=== PATIENT | male | born 1950 | race Caucasian/White ===

== ENCOUNTER 2017-04-11 06:01 | Day surgery (SDC) | payer MEDICARE ==
[2017-04-11] MEDS ORDERED: LACTATED RINGERS 1,000 ML IV ONE (06:32)
[2017-04-11] MEDS ORDERED: fentaNYL 100 MCG/2 ML VIAL IVP ONE (07:30)
[2017-04-11] MEDS ORDERED: MIDAZOLAM 2 MG/2 ML VIAL IVP ONE (07:30)
[2017-04-11] MEDS ORDERED: BENZOCAINE/TETRACAINE/BUTAMBEN SPRAY 56 GM TOP ONE (07:41)
== END 2017-04-11 06:02 | disposition home or self-care (01) ==
PROC: 0DB68ZX Excision of Stomach, Via Natural or Artificial Opening Endoscopic, Diagnostic (ICD-10-PCS; principal; 2017-04-11 07:30)
DX: R49.0 Dysphonia (principal); K21.9 Gastro-esophageal reflux disease without esophagitis; K29.70 Gastritis, unspecified, without bleeding; G20 Parkinson's disease; Z87.891 Personal history of nicotine dependence; Z79.82 Long term (current) use of aspirin; I10 Essential (primary) hypertension; Z95.810 Presence of automatic (implantable) cardiac defibrillator; Z90.49 Acquired absence of other specified parts of digestive tract
CPT/HCPCS: 43239; A9270; J7120

== ENCOUNTER 2018-05-11 14:27 | Outpatient (CLI) | payer MEDICARE ==
[2018-05-11 18:48] LABS: BASOPHILS # (AUTO) 0.1 10^3/uL (0.0-0.1); BASOPHILS % (AUTO) 1.1 %; EOSINOPHILS # (AUTO) 0.3 10^3/uL (0.0-0.7); EOSINOPHILS % (AUTO) 5.6 %; HGB - HEMOGLOBIN 13.3 g/dL (14.0-18.0); LYMPHOCYTES # (AUTO) 1.2 10^3/uL (1.5-3.5); LYMPHOCYTES % (AUTO) 24.1 %; MEAN CORPUSCULAR HEMOGLOBIN 30.3 pg (27.0-31.0); MEAN CORPUSCULAR VOLUME 91.8 fL (80.0-94.0); MEAN PLATELET VOLUME 10.1 fL (7.4-11.4); MONOCYTES # (AUTO) 0.3 10^3/uL (0.0-1.0); MONOCYTES % (AUTO) 6.5 %; NEUTROPHILS # (AUTO) 3.1 10^3/uL (1.5-6.6); NEUTROPHILS % (AUTO) 62.7 %; PLT - PLATELET COUNT 145 10^3/uL (130-450); RED BLOOD COUNT 4.38 10^6/uL (4.70-6.10); RED CELL DISTRIBUTION WIDTH 13.2 % (12.0-15.0); WHITE BLOOD COUNT 4.9 x10^3/uL (4.8-10.8)
[2018-05-11 19:04] LABS: ALBUMIN 4.1 g/dL (3.2-5.5); ALBUMIN/GLOBULIN RATIO 1.2 (1.0-2.2); ALKALINE PHOSPHATASE 33 IU/L (42-121); ALT ALANINE AMINOTRANSFERASE 57 IU/L (10-60); AST ASPARTATE AMINOTRANSFERASE 46 IU/L (10-42); BILIRUBIN,TOTAL 0.6 mg/dL (0.2-1.0); BUN - BLOOD UREA NITROGEN 18 mg/dL (6-20); CALCIUM 9.2 mg/dL (8.5-10.3); CARBON DIOXIDE - CO2 27 mmol/L (21-32); CHLORIDE 105 mmol/L (101-111); CHOL/HDL RATIO 3.7 (<5.0); CHOLESTEROL 146 mg/dL; CREATININE 1.1 mg/dL (0.6-1.2); GFR - MDRD 67 (>89); GLUCOSE 121 mg/dL (70-100); HDL CHOLESTEROL 40 mg/dL; LDL CHOLESTEROL,CALCULATED 92 mg/dL; LDL/HDL RATIO 2.3 (<3.6); SODIUM 137 mmol/L (135-145); TOTAL PROTEIN 7.5 g/dL (6.7-8.2); VLDL CHOLESTEROL 14 mg/dL
[2018-05-11 19:06] LABS: HB2 TOTAL 14.3 g/dL; HEMOGLOBIN A1C 0.81 g/dL; HEMOGLOBIN A1C % 7.3 % (4.6-6.2)
== END 2018-05-11 14:28 | disposition home or self-care (01) ==
LOC: LAB.WCP 14:27
PROVIDERS: ATTEND Family Medicine
DX: I10 Essential (primary) hypertension (principal); R74.8 Abnormal levels of other serum enzymes; Z13.220 Encounter for screening for lipoid disorders; R73.01 Impaired fasting glucose; Z12.5 Encounter for screening for malignant neoplasm of prostate; F41.9 Anxiety disorder, unspecified; R27.9 Unspecified lack of coordination; R00.2 Palpitations
CPT/HCPCS: 36415; 80053; 80061; 83036; 84443; 85025; G0103; 83721; 84153

== ENCOUNTER 2018-11-15 08:00 | Outpatient (CLI) | payer MEDICARE ==
[2018-11-15 13:55] LABS: ALBUMIN 4.1 g/dL (3.2-5.5); ALBUMIN/GLOBULIN RATIO 1.2 (1.0-2.2); BILIRUBIN,TOTAL 0.7 mg/dL (0.2-1.0); CREATININE 1.1 mg/dL (0.6-1.2); TOTAL PROTEIN 7.4 g/dL (6.7-8.2)
[2018-11-15 16:44] LABS: HB2 TOTAL 14.2 g/dL; HEMOGLOBIN A1C 0.82 g/dL; HEMOGLOBIN A1C % 7.4 % (4.6-6.2)
== END 2018-11-15 23:59 | disposition home or self-care (01) ==
LOC: LAB.WCP 08:00
PROVIDERS: ATTEND Family Medicine
DX: E11.9 Type 2 diabetes mellitus without complications (principal)
CPT/HCPCS: 36415; 80053; 83036

== ENCOUNTER 2018-12-08 14:05 | Outpatient (CLI) | payer MEDICARE ==
--- NOTE | 2018-12-10 16:05 | Ultrasound Report ---
Reason: ELEVATED LIVER ENZYMES,FATTY LIVER DISEASE,HEPATIC Procedure Date: 12/08/2018 Accession Number: [id number] / [id number] Procedure: US - Abdomen Limited CPT Code: FULL RESULT: EXAM: ABDOMEN ULTRASOUND LIMITED, RUQ EXAM DATE: 12/08/2018 03:18 PM. CLINICAL HISTORY: ELEVATED LIVER ENZYMES,FATTY LIVER Disease, hepatic. COMPARISON: 04/03/2014 ultrasound and 01/16/2015 CT. TECHNIQUE: Real-time scanning was performed with static images obtained. FINDINGS: Limited due to patient's body habitus and inability to hold his breath. Liver: Normal in size and increased in echotexture. 15.4 cm. Innumerable simple cysts are present the largest in the left lobe approximately 4 cm and the largest in the right lobe approximately 3.6 cm. Main portal vein flow: Hepatopetal. Gallbladder: Surgically absent Biliary System: CBD measures 3.5 mm. No intrahepatic or extrahepatic ductal dilatation. Free fluid: None. Right kidney: 10.2 cm in length. No hydronephrosis. IMPRESSION: 1. Multiple hepatic simple cysts. 2. Status post cholecystectomy. 3. Increased hepatic echogenicity consistent with fatty infiltration. RADIA
== END 2018-12-08 14:06 | disposition home or self-care (01) ==
LOC: DI 14:05
PROVIDERS: ATTEND Family Medicine
DX: K76.89 Other specified diseases of liver (principal); R74.8 Abnormal levels of other serum enzymes; K76.0 Fatty (change of) liver, not elsewhere classified
CPT/HCPCS: 76705

== ENCOUNTER 2019-02-18 08:00 | Outpatient (CLI) | payer MEDICARE ==
[2019-02-18 12:55] LABS: ALBUMIN 4.4 g/dL (3.2-5.5); ALBUMIN/GLOBULIN RATIO 1.5 (1.0-2.2); BILIRUBIN,TOTAL 0.4 mg/dL (0.2-1.0); CALCIUM 9.5 mg/dL (8.5-10.3); CREATININE 1.1 mg/dL (0.6-1.2); TOTAL PROTEIN 7.4 g/dL (6.7-8.2)
[2019-02-18 13:56] LABS: HB2 TOTAL 13.9 g/dL; HEMOGLOBIN A1C 0.79 g/dL; HEMOGLOBIN A1C % 7.4 % (4.6-6.2)
== END 2019-02-18 23:59 | disposition home or self-care (01) ==
LOC: LAB.WCP 08:00
PROVIDERS: ATTEND Family Medicine
DX: M21.6X9 Other acquired deformities of unspecified foot (principal); E11.9 Type 2 diabetes mellitus without complications; K76.0 Fatty (change of) liver, not elsewhere classified; K76.89 Other specified diseases of liver; G20 Parkinson's disease
CPT/HCPCS: 36415; 80053; 83036

== ENCOUNTER 2019-06-06 08:00 | Outpatient (CLI) | payer MEDICARE ==
[2019-06-07 15:18] LABS: HEPATITIS A IGM NON-REACTIVE (NON-REACTIVE); HEPATITIS B CORE ANTIBODY IGM NON-REACTIVE (NON-REACTIVE); HEPATITIS B SURFACE ANTIGEN NON-REACTIVE (NON-REACTIVE); HEPATITIS C ANTIBODY NON-REACTIVE (NON-REACTIVE)
== END 2019-06-06 23:59 | disposition home or self-care (01) ==
LOC: LAB.WCP 08:00
PROVIDERS: ATTEND Family Medicine
DX: K76.0 Fatty (change of) liver, not elsewhere classified (principal)
CPT/HCPCS: 36415; 80074

== ENCOUNTER 2019-07-16 09:46 | Outpatient (CLI) | payer MEDICARE | END 2019-07-16 09:47 | disposition home or self-care (01) | LOC: RT 09:46 | PROVIDERS: ATTEND Psychiatry & Neurology Neurology | DX: G20 Parkinson's disease (principal) | CPT/HCPCS: 93005 ==

== ENCOUNTER → 2019-09-03 | Outpatient (CLI) | payer MEDICARE ==
--- NOTE | 2019-09-04 04:30 | XRAY Report ---
Reason: RIGHT ANKLE PAIN Procedure Date: 09/03/2019 Accession Number: [id number] / [id number] Procedure: WCP - Ankle 3 View RT CPT Code: FULL RESULT: EXAM: RIGHT ANKLE RADIOGRAPHY EXAM DATE: 09/03/2019 09:10 AM. CLINICAL HISTORY: RIGHT ANKLE PAIN. COMPARISON: None. TECHNIQUE: 3 views. FINDINGS: Bones: Small fracture fragment of uncertain age suspected at the tip of the lateral malleolus. Joints: No dislocation seen. Ankle mortise appears intact. No joint effusion seen. Soft Tissues: Soft tissue swelling. IMPRESSION: 1. Suspect small fracture fragment at the tip of the lateral malleolus. RADIA
== END ==
LOC: DI.WCP 08:00 → EDSTATUS 12:30
PROVIDERS: ATTEND Nurse Practitioner Family
DX: M25.571 Pain in right ankle and joints of right foot (principal)

== ENCOUNTER 2019-09-26 07:10 | Outpatient (CLI) | payer MEDICARE ==
[2019-09-26 12:27] LABS: BASOPHILS % (AUTO) 0.7 %; EOSINOPHILS # (AUTO) 0.2 10^3/uL (0.0-0.7); HGB - HEMOGLOBIN 12.7 g/dL (14.0-18.0); LYMPHOCYTES # (AUTO) 1.3 10^3/uL (1.5-3.5); LYMPHOCYTES % (AUTO) 23.3 %; MEAN CORPUSCULAR HEMOGLOBIN 29.3 pg (27.0-31.0); MEAN CORPUSCULAR HGB CONC 32.2 g/dL (32.0-36.0); MONOCYTES # (AUTO) 0.5 10^3/uL (0.0-1.0); MONOCYTES % (AUTO) 8.4 %; NEUTROPHILS # (AUTO) 3.5 10^3/uL (1.5-6.6); NEUTROPHILS % (AUTO) 63.4 %; PLT - PLATELET COUNT 185 10^3/uL (130-450); RED BLOOD COUNT 4.34 10^6/uL (4.70-6.10); RED CELL DISTRIBUTION WIDTH 12.5 % (12.0-15.0); WHITE BLOOD COUNT 5.5 x10^3/uL (4.8-10.8)
[2019-09-26 12:47] LABS: ALBUMIN 4.5 g/dL (3.2-5.5); ALBUMIN/GLOBULIN RATIO 1.5 (1.0-2.2); ALKALINE PHOSPHATASE 29 IU/L (42-121); ALT ALANINE AMINOTRANSFERASE 29 IU/L (10-60); AST ASPARTATE AMINOTRANSFERASE 26 IU/L (10-42); BILIRUBIN,TOTAL 0.9 mg/dL (0.2-1.0); BUN - BLOOD UREA NITROGEN 20 mg/dL (6-20); CALCIUM 9.3 mg/dL (8.5-10.3); CARBON DIOXIDE - CO2 28 mmol/L (21-32); CHLORIDE 107 mmol/L (101-111); CHOL/HDL RATIO 3.8 (<5.0); CHOLESTEROL 149 mg/dL; CREATININE 1.1 mg/dL (0.6-1.2); GFR - MDRD 66 (>89); GLUCOSE 113 mg/dL (70-100); HDL CHOLESTEROL 39 mg/dL; LDL CHOLESTEROL,CALCULATED 97 mg/dL; LDL/HDL RATIO 2.5 (<3.6); SODIUM 141 mmol/L (135-145); TOTAL PROTEIN 7.5 g/dL (6.7-8.2); VLDL CHOLESTEROL 13 mg/dL
[2019-09-26 12:56] LABS: HB2 TOTAL 13.8 g/dL; HEMOGLOBIN A1C 0.65 g/dL; HEMOGLOBIN A1C % 6.5 % (4.6-6.2)
== END 2019-09-26 23:59 | disposition home or self-care (01) ==
LOC: LAB.WCP 07:10
PROVIDERS: ATTEND Family Medicine
DX: G20 Parkinson's disease (principal); E11.9 Type 2 diabetes mellitus without complications; I10 Essential (primary) hypertension
CPT/HCPCS: 36415; 80053; 80061; 83036; 83721; 84443; 85025

== ENCOUNTER 2020-08-04 15:12 | Emergency (ER) | payer MEDICARE, OTHER ==
[2020-08-04 16:10] LABS: BASOPHILS # (AUTO) 0.1 10^3/uL (0.0-0.1); BASOPHILS % (AUTO) 1.3 %; EOSINOPHILS # (AUTO) 0.3 10^3/uL (0.0-0.7); EOSINOPHILS % (AUTO) 4.8 %; HGB - HEMOGLOBIN 13.7 g/dL (14.0-18.0); LYMPHOCYTES # (AUTO) 1.2 10^3/uL (1.5-3.5); LYMPHOCYTES % (AUTO) 18.6 %; MEAN CORPUSCULAR HEMOGLOBIN 30.2 pg (27.0-31.0); MEAN CORPUSCULAR HGB CONC 32.7 g/dL (32.0-36.0); MEAN CORPUSCULAR VOLUME 92.5 fL (80.0-94.0); MEAN PLATELET VOLUME 11.7 fL (7.4-11.4); MONOCYTES # (AUTO) 0.5 10^3/uL (0.0-1.0); MONOCYTES % (AUTO) 7.7 %; NEUTROPHILS # (AUTO) 4.3 10^3/uL (1.5-6.6); NEUTROPHILS % (AUTO) 67.3 %; PLT - PLATELET COUNT 187 10^3/uL (130-450); RED BLOOD COUNT 4.53 10^6/uL (4.70-6.10); RED CELL DISTRIBUTION WIDTH 12.7 % (12.0-15.0); WHITE BLOOD COUNT 6.4 x10^3/uL (4.8-10.8)
[2020-08-04 16:26] LABS: ALBUMIN 4.4 g/dL (3.2-5.5); ALBUMIN/GLOBULIN RATIO 1.3 (1.0-2.2); BILIRUBIN,TOTAL 0.6 mg/dL (0.2-1.0); CALCIUM 9.7 mg/dL (8.5-10.3); CREATININE 1.3 mg/dL (0.6-1.2); MAGNESIUM 1.7 mg/dL (1.7-2.8); TOTAL PROTEIN 7.7 g/dL (6.7-8.2)
--- NOTE | 2020-08-04 16:35 | CT Report ---
PROCEDURE: HEAD WO INDICATIONS: fall and struck head; weakness TECHNIQUE: Noncontrast 4.5 mm thick angled axial sections acquired from the foramen magnum to the vertex. For r adiation dose reduction, the following was used: automated exposure control, adjustment of mA and/or kV according to patient size. COMPARISON: None. FINDINGS: Image quality: Study degraded by streak artifact from bilateral neurostimulator device electrodes. Th ere is also mild motion artifact. CSF spaces: Basal cisterns are patent. No extra-axial fluid collections. Ventricles are symmetric in size and shape. Brain: Bilateral stimulator device electrodes are noted extending into the region of the lalita bilate rally. The electrodes causes moderate beam hardening and streak artifact. No midline shift. No intra cranial masses or acute hemorrhage. Patel-white matter interface is normal. Mild diffuse cortical vo lume loss with associated prominence of the ventricles and sulci. Mild periventricular white matter c hanges from sequela of chronic small vessel ischemic disease. Minimal atherosclerotic calcifications of the intracranial internal carotid arteries. Skull and face: Calvarium and visualized facial bones are intact, without suspicious lesions. Sinuses: Visualized sinuses and mastoids are clear. IMPRESSION: Limited evaluation of the head secondary to beam hardening/artifact from neurostimulator electrodes a nd motion artifact. Within the limitations of this study, no acute intracranial abnormalities identif ied. Reviewed by: Dat Scott MD on 08/04/2020 4:34 PM PDT Approved by: Dat Scott MD on 08/04/2020 4:34 PM PDT Station ID: [id number]
--- NOTE | 2020-08-04 17:45 | ED Physician Documentation ---
PD HPI ALTERED MENTAL STATUS - Stated complaint Stated Complaint: GLF/CONFUSION - Chief complaint Chief Complaint: Neuro - History obtained from History obtained from: Patient, Family () - History of Present Illness Timing - onset: How many days ago (has had increased balance problems over last several days with falling and did hit head few times. No fevers. Has appt with PMD in 2 days and Neurologist next week. Neurology office called him back and directed him to ER to ensure no other cofactors such as infection, ICH, electrolyte problems, etc.) Timing - duration: Days (history of balance problems with Parkinsons but has been notably worse the past several days, with falls.) Timing - details: Gradual onset, Still present Quality / character: No: Confused, Disoriented Associated symptoms: No: Fever, Headache, Dyspnea, Cough, NVD, Syncope Contributing factors: No: Anticoagulated, Diabetic, Recent med change, Intoxicated Basline status: Alert and oriented X 3, Ambulatory, Walker Recently seen: Not recently seen Review of Systems Constitutional: denies: Fever, Chills Nose: denies: Rhinorrhea / runny nose, Congestion Throat: denies: Sore throat Respiratory: denies: Cough GI: denies: Abdominal Pain, Nausea, Vomiting, Diarrhea : denies: Dysuria Skin: denies: Abrasion (s), Laceration (s) Neurologic: reports: Generalized weakness, Head injury. denies: Focal weakness, Numbness, Difficulty speaking, Altered mental status, Headache PD PAST MEDICAL HISTORY - Past Medical History Cardiovascular: Other Respiratory: Sleep apnea, CPAP use Endocrine/Autoimmune: None GI: GERD : Benign prostate hypertrophy HEENT: Other Psych: None Musculoskeletal: None Derm: None - Past Surgical History Past Surgical History: Yes General: Cholecystectomy Derm: Other - Present Medications Home Medications: Ambulatory Orders Medication Instructions Recorded Confirmed Docosahexaenoic Acid [Dha] 450 mg PO BID 09/05/13 04/11/17 Multivit-Min/Iron Fum/Folic AC 1 each PO DAILY 09/05/13 04/11/17 [Freedavite Tablet] Rasagiline [Azilect] 1 mg PO DAILY 09/05/13 04/11/17 Ropinirole HCl [Requip Xl] 4 mg PO BID 09/05/13 04/11/17 Saw [place] 80 mg PO DAILY 09/05/13 04/11/17 Aspirin 81 mg PO DAILY 04/11/17 04/11/17 Esomeprazole Magnesium [Nexium] 20 mg PO DAILY 04/11/17 04/11/17 Naltrexone HCl 5 mg PO DAILY 04/11/17 04/11/17 Losartan Potassium 25 mg PO DAILY #20 tablet 08/04/20 - Allergies Allergies/Adverse Reactions: Allergies Allergy/AdvReac Type Severity Reaction Status Date / Time No Known Drug Allergies Allergy Verified 09/05/13 14:23 - Social History Does the pt smoke?: No Smoking Status: Never smoker - Immunizations Immunizations are current?: Yes PD ED PE NORMAL - Vitals Vital signs reviewed: Yes - General General: Alert and oriented X 3, No acute distress, Well developed/nourished - HEENT HEENT: Moist mucous membranes, Pharynx benign, Other (stimulator wires noted to back of neck down to stimulator generator. ) - Neck Neck: Supple, no meningeal sign, No adenopathy - Cardiac Cardiac: RRR, No murmur - Respiratory Respiratory: Clear bilaterally - Abdomen Abdomen: Soft, Non tender - Derm Derm: Normal color, Warm and dry - Extremities Extremities: Normal ROM s pain, No edema, No calf tenderness / cord - Neuro Neuro: Alert and oriented X 3, No motor deficit, No sensory deficit, Normal speech Results - Vitals Vitals: Vital Signs - 24 hr 08/04/20 08/04/20 08/04/20 15:16 17:52 18:48 Temperature 36.7 C 36.8 C Heart Rate 66 57 L 54 L Respiratory 16 24 18 Rate Blood Pressure 150/76 H 224/95 H 217/92 H O2 Saturation 99 100 98 08/04/20 08/04/20 19:00 19:50 Temperature 36.6 C Heart Rate 48 L 67 Respiratory 18 18 Rate Blood Pressure 201/82 H 198/84 H O2 Saturation 97 99 Oxygen O2 Source Room air - Labs Labs: Laboratory Tests 08/04/20 08/04/20 08/04/20 16:00 16:00 16:00 WBC 6.4 RBC 4.53 L Hgb 13.7 L Hct 41.9 L MCV 92.5 MCH 30.2 MCHC 32.7 RDW 12.7 Plt Count 187 MPV 11.7 H Neut # (Auto) 4.3 Lymph # (Auto) 1.2 L [place] # (Auto) 0.5 Eos # (Auto) 0.3 Baso # (Auto) 0.1 Absolute Nucleated RBC 0.00 Nucleated RBC % 0.0 Sodium 139 Potassium 4.6 Chloride 105 Carbon Dioxide 23 Anion Gap 11.0 BUN 17 Creatinine 1.3 H Estimated GFR (MDRD) 55 L Glucose 135 H Lactic Acid 1.4 Calcium 9.7 Magnesium 1.7 Total Bilirubin 0.6 AST 19 ALT 21 Alkaline Phosphatase 31 L Total Protein 7.7 Albumin 4.4 Globulin 3.3 Albumin/Globulin Ratio 1.3 Lipase 30 Urine Color Urine Clarity Urine pH Ur Specific [place] Urine Protein Urine Glucose (UA) Urine Ketones Urine Occult Blood Urine Nitrite Urine Bilirubin Urine Urobilinogen Ur Leukocyte Esterase Ur Microscopic Review Urine Culture Comments 08/04/20 18:02 WBC RBC Hgb Hct MCV MCH MCHC RDW Plt Count MPV Neut # (Auto) Lymph # (Auto) [place] # (Auto) Eos # (Auto) Baso # (Auto) Absolute Nucleated RBC Nucleated RBC % Sodium Potassium Chloride Carbon Dioxide Anion Gap BUN Creatinine Estimated GFR (MDRD) Glucose Lactic Acid Calcium Magnesium Total Bilirubin AST ALT Alkaline Phosphatase Total Protein Albumin Globulin Albumin/Globulin Ratio Lipase Urine Color YELLOW Urine Clarity CLEAR Urine pH 5.5 Ur Specific [place] 1.025 Urine Protein NEGATIVE Urine Glucose (UA) NEGATIVE Urine Ketones NEGATIVE Urine Occult Blood NEGATIVE Urine Nitrite NEGATIVE Urine Bilirubin NEGATIVE Urine Urobilinogen 0.2 (NORMAL) Ur Leukocyte Esterase NEGATIVE Ur Microscopic Review NOT INDICATED Urine Culture Comments NOT INDICATED - Rads (name of study) head CT Radiology: Prelim report reviewed (artifact due to stimulator wires. No noted ICH nor other acute process. ), See rad report PD MEDICAL DECISION MAKING - ED course Complexity details: considered differential (has some high blood pressure here but symptoms do not sound like HTN urgency. Otherwise no signs of infections, electrolyte disorder, Acute ICH nor swelling, etc. Presume issues with Parkinsons and meds/stim. He has appt with PMD in couple days and then Neurology re: meds to help with Parkinsons. ), d/w patient, d/w family () Departure - Departure Disposition: 01 Home, Self Care Clinical Impression: Frequent falls, Parkinsons disease High blood pressure Qualifiers: Hypertension type: unspecified Qualified Code(s): I10 - Essential (primary) hypertension Condition: Stable Record reviewed to determine appropriate education?: Yes Instructions: ED Hypertension Poss Follow-Up: Samir Mcdaniel MD [Primary Care Provider] - Prescriptions: Losartan Potassium 25 mg PO DAILY #20 tablet Comments: Your blood pressure was high here today but unclear whether that was contrib uting to your symptoms. I would think less likely. However you should check your blood pressure once or twice daily over the next several days to week to see if it remains consistently high. If so you may need to be on a blood pressure medicine. It is possible it might be just elevated because of symptoms recently and might return to normal on its own. Continue your usual medications. Follow-up with your primary care and neurologist over the next few days. No signs of other infection or electrolyte problems or such on test today. If your BP is still very elevated tomorrow, you could start a mild BP med ahead of seeing your primary care. If you elect to do that, then start Losartan 25 mg PO daily. Discharge Date/Time: 08/04/20 19:50
[2020-08-04 18:20] LABS: BILIRUBIN,URINE NEGATIVE (NEGATIVE); CLARITY,URINE CLEAR (CLEAR); GLUCOSE, URINE (UA) NEGATIVE (NEGATIVE); KETONES,URINE (UA) NEGATIVE (NEGATIVE); LEUKOCYTE ESTERASE, URINE NEGATIVE (NEGATIVE); NITRITE,URINE NEGATIVE (NEGATIVE); OCCULT BLOOD,URINE NEGATIVE (NEGATIVE); PH,URINE 5.5 PH (5.0-7.5); PROTEIN,URINE NEGATIVE (NEGATIVE); UROBILINOGEN,URINE 0.2 (NORMAL) E.U./dL (NORMAL)
[2020-08-04] MEDS ORDERED: cloNIDine 0.1 MG TABLET PO STA (18:23)
[2020-08-04 20:00] VITALS: BP 198/84
== END 2020-08-04 19:50 | disposition home or self-care (01) ==
LOC: ED 15:12
DX: G20 Parkinson's disease (principal); I10 Essential (primary) hypertension; Z79.82 Long term (current) use of aspirin; Z91.81 History of falling
CPT/HCPCS: 36415; 70450; 80053; 81003; 83605; 83690; 83735; 85025; 99284; A9270; 81001; 87086

== ENCOUNTER 2020-08-14 10:51 | Outpatient (CLI) | payer MEDICARE, OTHER ==
--- NOTE | 2020-08-14 12:20 | XRAY Report ---
PROCEDURE: Chest 2 View X-Ray INDICATIONS: PARKINSON'S DISEASE TECHNIQUE: 2 view(s) of the chest. COMPARISON: None. FINDINGS: Surgical changes and devices: Neural stimulator control device is present over the lateral aspect of each chest with leads extending cephalad above the imaging margin. Lungs and pleura: No pleural effusions or pneumothorax. Lungs are clear. Mediastinum: Mediastinal contours are normal. Heart size is normal. Bones and chest wall: No suspicious bony abnormalities. Soft tissues appear unremarkable. IMPRESSION: Bilateral neural stimulators and leads, normal chest otherwise. Reviewed by: Julien Barber MD on 08/14/2020 12:18 PM PDT Approved by: Julien Barber MD on 08/14/2020 12:18 PM PDT Station ID: [id number]
== END 2020-08-14 10:52 | disposition home or self-care (01) ==
LOC: DI 10:51
PROVIDERS: ATTEND Psychiatry & Neurology Neurology
DX: G20 Parkinson's disease (principal)
CPT/HCPCS: 71046

== ENCOUNTER 2020-08-17 17:46 | Emergency (ER) | payer MEDICARE, OTHER ==
--- NOTE | 2020-08-17 18:02 | ED Physician Documentation ---
PD HPI CHEST PAIN - Stated complaint Stated Complaint: RT SIDE PX - Chief complaint Chief Complaint: Cardiac - History obtained from History obtained from: Patient - History of Present Illness Timing - onset: How many hours ago (1), Today Timing - onset during: Light activity (Onset at rest of right lower chest and right upper abdomen pain associated with dyspnea and some distention of the abdomen. He had fallen lately to that side 2 hours prior but did not have pain at that time.) Timing - duration: Hours (1) Timing - details: Abrupt onset, Still present Quality: Aching, Sharp, Pain Location: Right chest, Other (right upper abd) Improved by: Other (breathing and moving.) Worsened by: Inspiration Associated symptoms: Shortness of air, General Weakness. No: Nausea, Feeling faint / dizzy, Cough Similar symptoms before: Has not had sx before Recently seen: Clinic, Emergency Dept (2 weeks ago for BP elevated. Started on new med recently for that. Also seen Neurologist and Rx Gabapentin couple weeks ago.) Review of Systems Constitutional: denies: Fever Nose: denies: Rhinorrhea / runny nose, Congestion Throat: denies: Sore throat Cardiac: reports: Chest pain / pressure. denies: Palpitations Respiratory: reports: Dyspnea. denies: Cough GI: reports: Abdominal Pain (right upper) Skin: denies: Abrasion (s), Laceration (s) Neurologic: denies: Focal weakness, Numbness, Headache PD PAST MEDICAL HISTORY - Past Medical History Cardiovascular: Hypertension, Other Respiratory: Sleep apnea, CPAP use Neuro: Parkinson's Endocrine/Autoimmune: None GI: GERD : Benign prostate hypertrophy HEENT: Other Psych: None Musculoskeletal: None Derm: None - Past Surgical History Past Surgical History: Yes General: Cholecystectomy Derm: Other - Present Medications Home Medications: Ambulatory Orders Medication Instructions Recorded Confirmed Docosahexaenoic Acid [Dha] 450 mg PO BID 09/05/13 04/11/17 Multivit-Min/Iron Fum/Folic AC 1 each PO DAILY 09/05/13 04/11/17 [Freedavite Tablet] Rasagiline [Azilect] 1 mg PO DAILY 09/05/13 04/11/17 Ropinirole HCl [Requip Xl] 4 mg PO BID 09/05/13 04/11/17 Saw [place] 80 mg PO DAILY 09/05/13 04/11/17 Aspirin 81 mg PO DAILY 04/11/17 04/11/17 Esomeprazole Magnesium [Nexium] 20 mg PO DAILY 04/11/17 04/11/17 Naltrexone HCl 5 mg PO DAILY 04/11/17 04/11/17 Losartan Potassium 25 mg PO DAILY #20 tablet 08/04/20 Oxycodone HCl/Acetaminophen 1 each PO Q6H PRN #12 tablet 08/17/20 [Percocet 5-325 mg Tablet] - Allergies Allergies/Adverse Reactions: Allergies Allergy/AdvReac Type Severity Reaction Status Date / Time No Known Drug Allergies Allergy Verified 08/17/20 17:55 - Social History Does the pt smoke?: No Smoking Status: Never smoker - Immunizations Immunizations are current?: Yes PD ED PE NORMAL - Vitals Vital signs reviewed: Yes - General General: Alert and oriented X 3, Well developed/nourished, Other (appears in considerable pain with some dyspnea/wheezing sounds, but pain is right lower chest/mostly RUQ abd. ) - HEENT HEENT: Pharynx benign - Neck Neck: Supple, no meningeal sign, No adenopathy - Cardiac Cardiac: RRR, No murmur - Respiratory Respiratory: Other (some exp wheezing. No chestwall tenderness. ) - Abdomen Abdomen: Soft, Other (Abdomen feels tight and distended. There is marked tenderness to light touch and percussion in the right upper quadrant. Bowel sounds are diminished. There is no obvious bruising noted. The lower abdomen is nontender.) - Male Male : Deferred - Rectal Rectal: Deferred - Back Back: No CVA TTP - Derm Derm: Normal color, Warm and dry - Extremities Extremities: Normal ROM s pain, No edema, No calf tenderness / cord - Neuro Neuro: Alert and oriented X 3, No motor deficit, Normal speech Eye Opening: Spontaneous Motor: Obeys Commands Verbal: Oriented GCS Score: 15 Results - Vitals Vitals: Vital Signs - 24 hr 08/17/20 08/17/20 08/17/20 17:55 18:40 19:11 Temperature 36.7 C Heart Rate 75 80 74 Respiratory 18 12 12 Rate Blood Pressure 188/102 H 173/76 H 188/96 H O2 Saturation 96 94 96 Oxygen O2 Source Room air - Labs Labs: Laboratory Tests 08/17/20 08/17/20 08/17/20 18:05 18:05 18:05 WBC 8.3 RBC 4.68 L Hgb 14.0 Hct 41.9 L MCV 89.5 MCH 29.9 MCHC 33.4 RDW 12.6 Plt Count 210 MPV 11.5 H Neut # (Auto) 5.7 Lymph # (Auto) 1.5 [place] # (Auto) 0.7 Eos # (Auto) 0.3 Baso # (Auto) 0.1 Absolute Nucleated RBC 0.00 Nucleated RBC % 0.0 Sodium 140 Potassium 3.9 Chloride 104 Carbon Dioxide 27 Anion Gap 9.0 BUN 18 Creatinine 1.2 Estimated GFR (MDRD) 60 L Glucose 124 H Calcium 9.4 Total Bilirubin 0.8 AST 25 ALT 29 Alkaline Phosphatase 34 L Troponin I High Sens 5.8 Total Protein 8.1 Albumin 4.7 Globulin 3.4 Albumin/Globulin Ratio 1.4 Lipase 30 - Rads (name of study) chest xray Radiology: Prelim report reviewed (no acute process, no interval change from prior), See rad report abd/pelvic CT Radiology: Prelim report reviewed, See rad report PD MEDICAL DECISION MAKING - ED course Complexity details: re-evaluated patient (But improved after his some pain medicines with only mild tenderness to palpation now. His CT scan and blood tests are okay without any obvious cause for the pain. My most likely suspicion is 1 of the small cysts of his liver ruptured and had some abrupt pain to it. The major ones look comparable), considered differential (Pain with tenderness significantly in the right upper quadrant abdomen. Does hurt to breathe as well. Consideration for perforated viscus or acute bleeding or bowel obstruction or other significant pathology.), d/w patient Departure - Departure Disposition: 01 Home, Self Care Clinical Impression: Acute abdominal pain in right upper quadrant Condition: Stable Record reviewed to determine appropriate education?: Yes Instructions: ED Abdominal Pain Unkn Cause Follow-Up: Samir Mcdaniel MD [Primary Care Provider] - Prescriptions: Oxycodone HCl/Acetaminophen [Percocet 5-325 mg Tablet] 1 each PO Q6H PRN #12 tablet PRN Reason: pain Comments: Blood test and CT scan do not show any acute obvious cause for the pain. A likely consideration would be a rupture of 1 of the small cysts of the liver. With that I would anticipate the abrupt significant pain you had and then lessened pain perhaps still for another day or 2. Use Tylenol every 4-6 hours or oxycodone if needed for worse pain. Recheck if not improved well over the next day or 2 and return if worsening.
[2020-08-17] MEDS ORDERED: SODIUM CHLORIDE 0.9% 1,000 ML IV STA (18:08)
[2020-08-17] MEDS ORDERED: HYDROmorphone 1 MG/ML CARPUJECT IVP STA (18:08)
[2020-08-17] MEDS ORDERED: ALBUTEROL 1 PUFF INH STA (18:09)
[2020-08-17 18:20] LABS: BASOPHILS # (AUTO) 0.1 10^3/uL (0.0-0.1); EOSINOPHILS # (AUTO) 0.3 10^3/uL (0.0-0.7); LYMPHOCYTES # (AUTO) 1.5 10^3/uL (1.5-3.5); LYMPHOCYTES % (AUTO) 17.8 %; MEAN CORPUSCULAR HEMOGLOBIN 29.9 pg (27.0-31.0); MEAN CORPUSCULAR HGB CONC 33.4 g/dL (32.0-36.0); MEAN CORPUSCULAR VOLUME 89.5 fL (80.0-94.0); MEAN PLATELET VOLUME 11.5 fL (7.4-11.4); MONOCYTES # (AUTO) 0.7 10^3/uL (0.0-1.0); MONOCYTES % (AUTO) 8.9 %; NEUTROPHILS # (AUTO) 5.7 10^3/uL (1.5-6.6); NEUTROPHILS % (AUTO) 68.9 %; PLT - PLATELET COUNT 210 10^3/uL (130-450); RED BLOOD COUNT 4.68 10^6/uL (4.70-6.10); RED CELL DISTRIBUTION WIDTH 12.6 % (12.0-15.0); WHITE BLOOD COUNT 8.3 x10^3/uL (4.8-10.8)
[2020-08-17] MEDS ORDERED: IOVERSOL 320 100 ML VIAL IVP ONE ×2 (18:25→18:48)
--- NOTE | 2020-08-17 18:27 | XRAY Report ---
PROCEDURE: Chest 1 View X-Ray INDICATIONS: Chest pain TECHNIQUE: One view of the chest was acquired. COMPARISON: 08/14/2020 FINDINGS: Surgical changes and devices: Right and left chest wall neurostimulator is are again seen. Lungs and pleura: No pleural effusions or pneumothorax. Lungs are clear. Mediastinum: Mediastinal contours appear normal. Heart size is normal. Bones and chest wall: No suspicious bony lesions. Overlying soft tissues appear unremarkable. IMPRESSION: No acute cardiopulmonary pathology. No significant changes from previous study. Reviewed by: Jt Crespo MD on 08/17/2020 6:25 PM PDT Approved by: Jt Crespo MD on 08/17/2020 6:25 PM PDT Station ID: [id number]
[2020-08-17 18:28] LABS: ALBUMIN 4.7 g/dL (3.2-5.5); ALBUMIN/GLOBULIN RATIO 1.4 (1.0-2.2); BILIRUBIN,TOTAL 0.8 mg/dL (0.2-1.0); CALCIUM 9.4 mg/dL (8.5-10.3); CREATININE 1.2 mg/dL (0.6-1.2); TOTAL PROTEIN 8.1 g/dL (6.7-8.2)
--- NOTE | 2020-08-17 19:06 | CT Report ---
PROCEDURE: Abdomen/Pelvis W INDICATIONS: abrupt RUQ abd/lower chest pain CONTRAST: IV CONTRAST: Optiray 320 ml: 100 PO CONTRAST: *NO PO CONTRAST TECHNIQUE: After the administration of IV contrast, 5 mm thick sections acquired from the diaphragms to the symp hysis. 5 mm thick coronal and sagittal reformats were acquired. For radiation dose reduction, the f ollowing was used: automated exposure control, adjustment of mA and/or kV according to patient size. COMPARISON: Ultrasound of abdomen dated 12/08/2018. FINDINGS: Image quality: Excellent. ABDOMEN: Lung bases: Bibasilar dependent atelectasis are seen. Heart size is normal. Solid organs: Liver liver is normal in size. Numerous well-circumscribed hypodense areas are again s een scattered throughout liver parenchyma and measures up to 12 Hounsfield unit in density likely rep resent hepatic cysts. This was also noted on previous ultrasound study. Largest lesion now measures u p to 3.8 x 3.8 cm in right hepatic dome. Gallbladder is surgically absent. Spleen is normal in size a nd enhancement. Biliary system is non dilated. Pancreas enhances normally. No adrenal nodules. Ki dneys demonstrate normal size and enhancement, without hydronephrosis. Peritoneum and bowel: Bowel loops demonstrate normal wall thickness and caliber. No free fluid or a ir. Mild fecal stasis in the colon is seen. Appendix is visualized and is within normal limits. Nodes and vessels: No retroperitoneal or mesenteric adenopathy by size criteria. Aorta and inferior vena cava are normal in size. Miscellaneous: No ventral hernias. PELVIS: Genitourinary: Bladder wall thickness is normal. Miscellaneous: No inguinal hernias or adenopathy. Bones: No suspicious bony lesions. No vertebral body compression fractures. IMPRESSION: 1. No bowel obstruction. Normal appendix. No abnormal bowel wall thickening. No free fluid of free ai r. 2. Numerous well-circumscribed hypodensities scattered throughout liver parenchyma likely represent h epatic cysts slightly increased in size compared to previous ultrasound dated 12/08/2018. 3. No renal stone or hydronephrosis. 4. Mild bibasilar dependent atelectasis. Reviewed by: Jt Crespo MD on 08/17/2020 7:04 PM PDT Approved by: Jt Crespo MD on 08/17/2020 7:04 PM PDT Station ID: [id number]
[2020-08-17] MEDS ORDERED: KETOROLAC 30 MG/ML VIAL IVP STA (19:17)
[2020-08-17 20:01] VITALS: BP 175/101
== END 2020-08-17 20:13 | disposition home or self-care (01) ==
LOC: ED 17:46
DX: R10.11 Right upper quadrant pain (principal)
CPT/HCPCS: 36415; 71045; 74177; 80053; 83690; 84484; 85025; 93005; 94640; 96374; 96375; 99284; J1170; Q9967

== ENCOUNTER 2020-10-14 08:00 | Outpatient (CLI) | payer MEDICARE, OTHER ==
[2020-10-14 19:22] LABS: CALCIUM 9.5 mg/dL (8.5-10.3); CREATININE 1.1 mg/dL (0.6-1.2)
== END 2020-10-14 23:59 | disposition home or self-care (01) ==
LOC: LAB.WCP 08:00
PROVIDERS: ATTEND Family Medicine
DX: I95.1 Orthostatic hypotension (principal)
CPT/HCPCS: 36415; 80048

== ENCOUNTER 2020-10-23 13:24 | Outpatient (CLI) | payer MEDICARE, OTHER | END 2020-10-23 13:25 | disposition EMS.NT | LOC: EMS 13:24 | PROVIDERS: ATTEND Surgery | DX: Z03.89 Encounter for observation for other suspected diseases and conditions ruled out (principal) ==

== ENCOUNTER 2020-12-08 10:38 | Outpatient (CLI) | payer MEDICARE, OTHER ==
[2020-12-08 19:00] LABS: CALCIUM 9.6 mg/dL (8.5-10.3); CREATININE 1.1 mg/dL (0.6-1.2)
== END 2020-12-08 23:59 | disposition home or self-care (01) ==
LOC: LAB.WCP 10:38
PROVIDERS: ATTEND Family Medicine
DX: I95.1 Orthostatic hypotension (principal)
CPT/HCPCS: 36415; 80048

== ENCOUNTER 2020-12-11 12:25 | Emergency (ER) | payer MEDICARE, OTHER ==
--- NOTE | 2020-12-11 13:07 | ED Physician Documentation ---
PD HPI HEAD INJURY - Stated complaint Stated Complaint: FALL, FACE LAC - Chief complaint Chief Complaint: Trauma Hd/Nk - History obtained from History obtained from: Patient - History of Present Illness Mechanism of head injury: Fell (he fell about 4 feet off retaining wall, landing face forward on ground. Lac to chin and upper lip. No LOC but dazed. No neck pain. Some pain right hip. No chest/abd pain. Main concerns of him/ are the neurostimulators in neck, with wires to batteries on chest, and the lacs of the chin and lip.) Where head injury occurred: Home Timing - onset: Today Location of injury: Front Quality of pain: Pain, Aching Associated symptoms: No: LOC, AMS, Nausea / vomiting Symptoms worsen with: Palpation, Movement (of his jaw) Contributing factors: No: Anticoagulated Review of Systems Constitutional: denies: Fever, Chills Nose: denies: Rhinorrhea / runny nose, Congestion Throat: denies: Sore throat Cardiac: denies: Chest pain / pressure Respiratory: denies: Cough GI: denies: Abdominal Pain Skin: reports: Laceration (s) (chin) Musculoskeletal: denies: Neck pain, Back pain Neurologic: denies: Focal weakness, Headache PD PAST MEDICAL HISTORY - Past Medical History Cardiovascular: Hypertension, Other Respiratory: Sleep apnea Neuro: Parkinson's Endocrine/Autoimmune: None GI: GERD : Benign prostate hypertrophy HEENT: Other Psych: None Musculoskeletal: None Derm: None Other Past Medical History: abdominal cyst - Past Surgical History Past Surgical History: Yes General: Cholecystectomy Derm: Other - Present Medications Home Medications: Ambulatory Orders Medication Instructions Recorded Confirmed Ropinirole HCl [Requip Xl] 4 mg PO TID 09/05/13 12/11/20 Esomeprazole Magnesium [Nexium] 20 mg PO DAILY 04/11/17 12/11/20 Fludrocortisone [Florinef] 0.2 mg PO DAILY 08/17/20 12/11/20 Gabapentin 100 mg PO TID 08/17/20 12/11/20 Carbidopa/Levodopa 25/100 [Sinemet 1 each PO TID 12/11/20 12/11/20 25 mg/100 mg] Cholecalciferol (Vitamin D3) 12/11/20 [Vitamin D3] Oxycodone HCl/Acetaminophen 1 each PO Q6H PRN #20 tablet 12/11/20 [Percocet 5-325 mg Tablet] Turmeric 12/11/20 metFORMIN [Glucophage] 1,000 mg PO DAILY 12/11/20 12/11/20 - Allergies Allergies/Adverse Reactions: Allergies Allergy/AdvReac Type Severity Reaction Status Date / Time No Known Drug Allergies Allergy Verified 12/11/20 12:33 - Social History Does the pt smoke?: No Smoking Status: Never smoker Does the pt drink ETOH?: Yes Does the pt have substance abuse?: No - Immunizations Immunizations are current?: Yes PD ED PE NORMAL - Vitals Vital signs reviewed: Yes - General General: Alert and oriented X 3, No acute distress (Parkinsons with some speech and movement deficits. Baseline function per . ), Well developed/nourished - HEENT HEENT: PERRL, EOMI, Dentition benign, Other (frontal scalp bilaterally with subcut implants. There is some wiring felt linear both sides of neck. chin with 2 lacerations full thickness skin without bleeding nor FB. Left upper lip with partial thickness abrasion of mucosal area. Left left lip with small lac 0.5 cm inside lip. ) - Neck Neck: Supple, no meningeal sign, No bony TTP, Other (some tender soft tissue bilaterally. No bony deformity per se. ) - Cardiac Cardiac: RRR, No murmur - Respiratory Respiratory: Clear bilaterally, Other (bilateral upper chest wall with subcut devices c/w battery packs. No tenderness of these. ) - Abdomen Abdomen: Soft, Non tender - Back Back: No CVA TTP, No spinal TTP - Derm Derm: Normal color, Warm and dry - Extremities Extremities: Other (right anterior hip with some tenderness soft tissue. Passive ROM and impaction of the hip without pain. ) - Neuro Neuro: Alert and oriented X 3, No motor deficit, No sensory deficit Eye Opening: Spontaneous Motor: Obeys Commands Verbal: Oriented GCS Score: 15 Results - Vitals Vitals: Vital Signs - 24 hr 12/11/20 12/11/20 12:30 15:42 Temperature 36.8 C 36.5 C Heart Rate 86 64 Respiratory 17 16 Rate Blood Pressure 113/74 183/97 H O2 Saturation 99 95 Oxygen O2 Source Room air - Rads (name of study) head CT Radiology: Prelim report reviewed (no acute process), See rad report cervical CT Radiology: Prelim report reviewed (some arthritic changes; no acute fractures. ), See rad report right hip Radiology: Prelim report reviewed (no fractures nor dislocations. ), See rad report Procedures - Laceration (location) chin Length in cm: 3 Wound type: Irregular, Into subcut fat, Clean Neurovascular status: Sensory intact, Motor intact, Vascular intact Tendon involvement: Tendon intact Anesthesia: Lidocaine 2% with epi Deep layer closure: Vicryl, size #-0 - enter number (5), # sutures - enter numbe r (3) Skin layer closure: Nylon, Running, Size #-0 - enter number (6) Other: Patient tolerated well, No complications, Neurovascular intact, Dressing applied, Tetanus UTD Complexity: Simple PD MEDICAL DECISION MAKING - ED course Complexity details: reviewed results, considered differential (forward fall with chin lac, lip abrasion, scalp abrasions. Has neurostimulators in brain, so is concerned about the wiring intact. Has some abrasions of hands. NO chest/abd pain. right anterior hip pain. ), d/w patient, d/w family () Departure - Departure Disposition: 01 Home, Self Care Clinical Impression: Accidental fall Qualifiers: Encounter type: initial encounter Qualified Code(s): W19.XXXA - Unspecified fall, initial encounter Chin laceration Qualifiers: Encounter type: initial encounter Qualified Code(s): S01.81XA - Laceration wi thout foreign body of other part of head, initial encounter Lip laceration Qualifiers: Encounter type: initial encounter Qualified Code(s): S01.511A - Laceration without foreign body of lip, initial encounter Contusion, hip Qualifiers: Encounter type: initial encounter Laterality: right Qualified Code(s): S70.01XA - Contusion of right hip, initial encounter Head contusion Qualifiers: Encounter type: initial encounter Contusion of head detail: scalp Qualified Code(s): S00.03XA - Contusion of scalp, initial encounter Condition: Stable Record reviewed to determine appropriate education?: Yes Instructions: ED Laceration Facial Sutr Tape, ED Laceration Mouth Follow-Up: Titi Ocasio MD [Primary Care Provider] - Prescriptions: Oxycodone HCl/Acetaminophen [Percocet 5-325 mg Tablet] 1 each PO Q6H PRN #20 tablet PRN Reason: pain Comments: My suture care It is okay to wash and shower. Cleanse the wounds with soap and water (just water for inside the lip) 3-4 times a day. Apply ointment lightly several times a day. Activity as tolerated based on comfort. Your CT of the head and neck do not show any acute fractures or bleeding. The stimulant leads and wires appear intact. The x-ray of your hip does not show any fractures so presume just a good bruise which will still be sore. Tylenol ibuprofen if needed for pains. Add oxycodone if needed for worse pain. Suture removal of the face stitches in 7 to 10 days. That can be here or through your primary care. Recheck if signs of infection prior to that. Discharge Date/Time: 12/11/20 15:47
[2020-12-11] MEDS ORDERED: LIDOCAINE 2%-EPI 1:100000 20 ML MDV SUBQ ONE (13:38)
[2020-12-11] MEDS ORDERED: ACETAMINOPHEN 325 MG TABLET PO STA (13:40)
--- NOTE | 2020-12-11 14:40 | CT Report ---
PROCEDURE: HEAD WO INDICATIONS: fall, struck head; brain stimulants on scalp TECHNIQUE: Noncontrast 4.5 mm thick angled axial sections acquired from the foramen magnum to the vertex. For r adiation dose reduction, the following was used: automated exposure control, adjustment of mA and/or kV according to patient size. COMPARISON: None. FINDINGS: Image quality: Suboptimal due to stimulator hardware artifact. CSF spaces: Basal cisterns are patent. No extra-axial fluid collections. Ventricles are normal in size and shape. Brain: Post surgical changes related to bilateral deep brain stimulators. No midline shift. No intr acranial masses or hemorrhage. Patel-white matter interface is normal. Postsurgical calvarial changes related to deep brain stimulators Sinuses: Visualized sinuses and mastoids are clear. IMPRESSION: No acute intracranial process. Reviewed by: Lowell Mon MD on 12/11/2020 2:39 PM PST Approved by: Lowell Mon MD on 12/11/2020 2:39 PM [facility] Station ID: [id number]
--- NOTE | 2020-12-11 14:43 | CT Report ---
PROCEDURE: CERVICAL SPINE WO INDICATIONS: fall, struck face/ head and neck pain TECHNIQUE: Noncontrast 3 mm thick sections acquired from the skull base to the T4 level. Sagittal and coronal r eformats were then constructed. For radiation dose reduction, the following was used: automated exp osure control, adjustment of mA and/or kV according to patient size. COMPARISON: None. FINDINGS: Image quality: Excellent. Bones: No fractures or dislocations. Visualized superior ribs are intact. Straightening of the nor mal lordotic curvature. Scattered multilevel endplate spurring and diffuse facet arthropathy. Soft tissues: Prevertebral soft tissues are normal in thickness. No paravertebral hematomas. No ap ical pneumothoraces. IMPRESSION: No fracture Cervical spondylosis and facet arthropathy Reviewed by: Lowell Mon MD on 12/11/2020 2:42 PM PST Approved by: Lowell Mon MD on 12/11/2020 2:42 PM PST Station ID: [id number]
--- NOTE | 2020-12-11 14:48 | XRAY Report ---
PROCEDURE: Hip w/Pelvis 2-3V RT INDICATIONS: fall, with pain right anterolateral hip TECHNIQUE: AP pelvis with lateral view(s) of the bilateral hip(s). COMPARISON: None. FINDINGS: Bones: No fractures or dislocations. Mild bilateral hip joint generation Pelvic ring appears intact. No suspicious bony lesions. Lumbar spondylosis and facet disease. Soft tissues: The visualized bowel gas pattern is normal. No suspicious soft tissue calcifications. IMPRESSION: Mild bilateral hip joint degeneration Reviewed by: Lowell Mon MD on 12/11/2020 2:46 PM PST Approved by: Lowell Mon MD on 12/11/2020 2:46 PM PST Station ID: [id number]
[2020-12-11] MEDS ORDERED: oxyCODONE 5 MG TABLET PO STA (15:09)
[2020-12-11] MEDS ORDERED: KETOROLAC 30 MG/ML VIAL IM STA (15:10)
[2020-12-11 15:43] VITALS: BP 183/97
== END 2020-12-11 15:47 | disposition home or self-care (01) ==
LOC: ED 12:25
DX: S01.81XA Laceration without foreign body of other part of head, initial encounter (principal); S01.511A Laceration without foreign body of lip, initial encounter; S70.01XA Contusion of right hip, initial encounter; S00.03XA Contusion of scalp, initial encounter; S00.01XA Abrasion of scalp, initial encounter; S60.519A Abrasion of unspecified hand, initial encounter; W13.8XXA Fall from, out of or through other building or structure, initial encounter; Y92.007 Garden or yard of unspecified non-institutional (private) residence as the place of occurrence of the external cause; I10 Essential (primary) hypertension; G20 Parkinson's disease; Z96.82 Presence of neurostimulator; M47.812 Spondylosis without myelopathy or radiculopathy, cervical region; M16.0 Bilateral primary osteoarthritis of hip
CPT/HCPCS: 12052; 70450; 72125; 73502; 96372; 99284; A9270

== ENCOUNTER 2020-12-28 07:57 | Outpatient (CLI) | payer MEDICARE, OTHER ==
[2020-12-28 11:57] LABS: BASOPHILS # (AUTO) 0.1 10^3/uL (0.0-0.1); BASOPHILS % (AUTO) 1.3 %; EOSINOPHILS # (AUTO) 0.1 10^3/uL (0.0-0.7); EOSINOPHILS % (AUTO) 2.2 %; HGB - HEMOGLOBIN 13.4 g/dL (14.0-18.0); LYMPHOCYTES # (AUTO) 1.1 10^3/uL (1.5-3.5); LYMPHOCYTES % (AUTO) 19.4 %; MEAN CORPUSCULAR HEMOGLOBIN 29.3 pg (27.0-31.0); MEAN CORPUSCULAR HGB CONC 32.2 g/dL (32.0-36.0); MEAN PLATELET VOLUME 12.1 fL (7.4-11.4); MONOCYTES # (AUTO) 0.4 10^3/uL (0.0-1.0); MONOCYTES % (AUTO) 7.5 %; NEUTROPHILS # (AUTO) 3.8 10^3/uL (1.5-6.6); NEUTROPHILS % (AUTO) 69.2 %; PLT - PLATELET COUNT 228 10^3/uL (130-450); RED BLOOD COUNT 4.57 10^6/uL (4.70-6.10); RED CELL DISTRIBUTION WIDTH 12.6 % (12.0-15.0); WHITE BLOOD COUNT 5.5 x10^3/uL (4.8-10.8)
[2020-12-28 12:15] LABS: ALBUMIN 4.1 g/dL (3.2-5.5); ALBUMIN/GLOBULIN RATIO 1.3 (1.0-2.2); ALKALINE PHOSPHATASE 51 IU/L (42-121); ALT ALANINE AMINOTRANSFERASE < 10 IU/L (10-60); AST ASPARTATE AMINOTRANSFERASE 27 IU/L (10-42); BILIRUBIN,TOTAL 0.5 mg/dL (0.2-1.0); BUN - BLOOD UREA NITROGEN 18 mg/dL (6-20); CALCIUM 9.4 mg/dL (8.5-10.3); CARBON DIOXIDE - CO2 27 mmol/L (21-32); CHLORIDE 103 mmol/L (101-111); CHOL/HDL RATIO 4.2 (<5.0); CHOLESTEROL 160 mg/dL; CREATININE 1.2 mg/dL (0.6-1.2); GLUCOSE 124 mg/dL (70-100); HDL CHOLESTEROL 38 mg/dL; LDL CHOLESTEROL,CALCULATED 104 mg/dL; LDL/HDL RATIO 2.7 (<3.6); TOTAL PROTEIN 7.2 g/dL (6.7-8.2); VLDL CHOLESTEROL 18 mg/dL
[2020-12-28 12:34] LABS: HEMOGLOBIN A1c% 7.2 % (4.27-6.07)
[2020-12-28 18:00] LABS: CREATININE,URINE 175.4 mg/dL; MICROALBUM/CREATININE RATIO,UR 6.8 ug/mg (<30.0); MICROALBUMIN,URINE 1.2 mg/dL (0-300.0)
== END 2020-12-28 07:58 | disposition home or self-care (01) ==
LOC: LAB.N 07:57
PROVIDERS: ATTEND Internal Medicine
DX: E11.9 Type 2 diabetes mellitus without complications (principal); Z12.5 Encounter for screening for malignant neoplasm of prostate
CPT/HCPCS: 36415; 80053; 80061; 82043; 82570; 83036; 84443; 85025; G0103; 83721; 84153

== ENCOUNTER 2021-02-02 07:00 | Outpatient (CLI) | payer MEDICARE, OTHER | END 2021-02-02 23:59 | disposition home or self-care (01) | LOC: LAB.WCP 07:00 | PROVIDERS: ATTEND Family Medicine | DX: J02.9 Acute pharyngitis, unspecified (principal) | CPT/HCPCS: 87070 ==

== ENCOUNTER 2021-04-05 11:19 | Outpatient (CLI) | payer MEDICARE, OTHER | END 2021-04-05 11:20 | disposition EMS.NT | LOC: EMS 11:19 | DX: Z03.89 Encounter for observation for other suspected diseases and conditions ruled out (principal) ==

== ENCOUNTER 2021-04-12 15:57 | Emergency (ER) | payer MEDICARE, OTHER ==
[2021-04-12 16:42] LABS: BASOPHILS # (AUTO) 0.1 10^3/uL (0.0-0.1); EOSINOPHILS # (AUTO) 0.2 10^3/uL (0.0-0.7); EOSINOPHILS % (AUTO) 3.2 %; HCT - HEMATOCRIT 43.6 % (42.0-52.0); HGB - HEMOGLOBIN 13.7 g/dL (14.0-18.0); LYMPHOCYTES # (AUTO) 1.3 10^3/uL (1.5-3.5); LYMPHOCYTES % (AUTO) 18.9 %; MEAN CORPUSCULAR HEMOGLOBIN 29.1 pg (27.0-31.0); MEAN CORPUSCULAR HGB CONC 31.4 g/dL (32.0-36.0); MEAN CORPUSCULAR VOLUME 92.6 fL (80.0-94.0); MEAN PLATELET VOLUME 11.1 fL (7.4-11.4); MONOCYTES # (AUTO) 0.6 10^3/uL (0.0-1.0); MONOCYTES % (AUTO) 8.9 %; NEUTROPHILS # (AUTO) 4.8 10^3/uL (1.5-6.6); NEUTROPHILS % (AUTO) 67.9 %; PLT - PLATELET COUNT 197 10^3/uL (130-450); RED BLOOD COUNT 4.71 10^6/uL (4.70-6.10); WHITE BLOOD COUNT 7.1 x10^3/uL (4.8-10.8)
[2021-04-12 16:46] LABS: BILIRUBIN,URINE NEGATIVE (NEGATIVE); GLUCOSE, URINE (UA) NEGATIVE (NEGATIVE); KETONES,URINE (UA) NEGATIVE (NEGATIVE); LEUKOCYTE ESTERASE, URINE NEGATIVE (NEGATIVE); NITRITE,URINE NEGATIVE (NEGATIVE); OCCULT BLOOD,URINE LARGE (NEGATIVE); PROTEIN,URINE NEGATIVE (NEGATIVE); UROBILINOGEN,URINE 0.2 (NORMAL) E.U./dL (NORMAL)
[2021-04-12 16:49] LABS: CLARITY,URINE HAZY (CLEAR)
[2021-04-12 16:57] LABS: BACTERIA,URINE None Seen /HPF (None Seen); SQUAMOUS EPITHELIAL CELL,UR NONE SEEN (<= Few); WBC,URINE 0-3 /HPF (0-3)
[2021-04-12 16:57] LABS: ALBUMIN 4.7 g/dL (3.2-5.5); ALBUMIN/GLOBULIN RATIO 1.2 (1.0-2.2); BILIRUBIN,TOTAL 0.6 mg/dL (0.2-1.0); CALCIUM 9.9 mg/dL (8.5-10.3); CREATININE 1.2 mg/dL (0.6-1.2); POTASSIUM 4.1 mmol/L (3.5-5.0); TOTAL PROTEIN 8.5 g/dL (6.7-8.2)
--- NOTE | 2021-04-12 17:07 | ED Physician Documentation ---
History of Present Illness - Stated complaint Stated Complaint: BLOOD IN URINE - Chief complaint Chief Complaint: General - History obtained from History obtained from: Patient, Family - History of Present Illness Timing: Today Pain level max: 0 Pain level now: 0 - Additonal information Additional information: 70-year-old male with a history of Parkinson's disease, presents to the emergency department stating that he fell off his tractor and landed on the left flank 2 days ago. This morning had hematuria, This afternoon had a second episode. Patient and family state that the urine was dark appearing. Patient has no pain. No back pain. No abdominal pain. Nothing makes it better or worse. Does have a small bruise on the left flank. The patient's states that he has chronic hypertension when lying down, however as soon as he stands up his blood pressure returns to normal, not unusual to have blood pressures in the 200s when lying down. Review of Systems Ten Systems: 10 systems reviewed and negative Constitutional: denies: Fever, Chills Ears: denies: Ear pain Nose: denies: Rhinorrhea / runny nose, Congestion Cardiac: denies: Palpitations Respiratory: denies: Cough, Hemoptysis, Wheezing GI: denies: Vomiting, Constipation, Diarrhea, Hematemesis, Bloody / black stool : reports: Hematuria. denies: Dysuria, Frequency, Hesitancy Skin: denies: Rash Musculoskeletal: denies: Neck pain, Back pain PD PAST MEDICAL HISTORY - Past Medical History Past Medical History: Yes Cardiovascular: Hypertension, Other Respiratory: Sleep apnea Neuro: Parkinson's Endocrine/Autoimmune: None GI: GERD : Benign prostate hypertrophy HEENT: Other Psych: None Musculoskeletal: None Derm: None - Past Surgical History Past Surgical History: Yes General: Cholecystectomy Derm: Other - Present Medications Home Medications: Ambulatory Orders Medication Instructions Recorded Confirmed Ropinirole HCl [Requip Xl] 2 mg PO TID 09/05/13 04/12/21 Esomeprazole Magnesium [Nexium] 20 mg PO DAILY 04/11/17 04/12/21 Gabapentin 100 mg PO PRN PRN 08/17/20 04/12/21 Carbidopa/Levodopa 25/100 [Sinemet 1 each PO BID 12/11/20 04/12/21 25 mg/100 mg] Cholecalciferol (Vitamin D3) 1,250 mcg PO PRN PRN 12/11/20 04/12/21 [Vitamin D3] metFORMIN [Glucophage] 1,000 mg PO DAILY 12/11/20 04/12/21 - Allergies Allergies/Adverse Reactions: Allergies Allergy/AdvReac Type Severity Reaction Status Date / Time No Known Drug Allergies Allergy Verified 04/12/21 16:05 - Social History Does the pt smoke?: No Smoking Status: Never smoker Does the pt drink ETOH?: Yes Does the pt have substance abuse?: No - Immunizations Immunizations are current?: Yes - POLST Patient has POLST: No PD ED PE NORMAL - Vitals Vital signs reviewed: Yes - General General: Alert and oriented X 3, No acute distress, Well developed/nourished - HEENT HEENT: PERRL, Moist mucous membranes - Neck Neck: Supple, no meningeal sign - Cardiac Cardiac: RRR, No murmur, Strong equal pulses - Respiratory Respiratory: No respiratory distress, Clear bilaterally - Abdomen Abdomen: Soft, Non tender, Non distended - Back Back: No spinal TTP - Derm Derm: Warm and dry - Extremities Extremities: No edema, No calf tenderness / cord - Neuro Neuro: Alert and oriented X 3 - Psych Psych: Normal mood, Normal affect Results - Vitals Vitals: Vital Signs - 24 hr 04/12/21 04/12/21 04/12/21 16:05 16:18 16:42 Temperature 36.5 C Heart Rate 65 51 L Respiratory 16 16 Rate Blood Pressure 151/94 H 258/107 H 226/104 H O2 Saturation 94 96 04/12/21 04/12/21 04/12/21 17:03 17:42 19:00 Temperature Heart Rate 64 83 62 Respiratory 16 17 15 Rate Blood Pressure 182/100 H 241/111 H 236/100 H O2 Saturation 96 98 98 Oxygen O2 Source Room air - EKG (time done) 1727 Rate: Rate (enter#) (76) Rhythm: NSR [place]: Normal Intervals: Normal CO QRS: Normal Ischemia: Normal ST segments Other comments: Other comments (limited by artifact) - Labs Labs: Laboratory Tests 04/12/21 04/12/21 04/12/21 16:25 16:38 16:38 WBC 7.1 RBC 4.71 Hgb 13.7 L Hct 43.6 MCV 92.6 MCH 29.1 MCHC 31.4 L RDW 13.0 Plt Count 197 MPV 11.1 Neut # (Auto) 4.8 Lymph # (Auto) 1.3 L [place] # (Auto) 0.6 Eos # (Auto) 0.2 Baso # (Auto) 0.1 Absolute Nucleated RBC 0.00 Nucleated RBC % 0.0 Sodium 135 Potassium 4.1 Chloride 99 L Carbon Dioxide 27 Anion Gap 9.0 BUN 16 Creatinine 1.2 Estimated GFR (MDRD) 60 L Glucose 137 H Calcium 9.9 Total Bilirubin 0.6 AST 27 ALT 28 Alkaline Phosphatase 49 Total Creatine Kinase Troponin I High Sens Total Protein 8.5 H Albumin 4.7 Globulin 3.8 Albumin/Globulin Ratio 1.2 Lipase 27 Urine Color YELLOW Urine Clarity HAZY Urine pH 5.0 Ur Specific [place] 1.010 Urine Protein NEGATIVE Urine Glucose (UA) NEGATIVE Urine Ketones NEGATIVE Urine Occult Blood LARGE H Urine Nitrite NEGATIVE Urine Bilirubin NEGATIVE Urine Urobilinogen 0.2 (NORMAL) Ur Leukocyte Esterase NEGATIVE Urine RBC 6-10 H Urine WBC 0-3 Ur Squamous Epith Cells NONE SEEN Urine Bacteria None Seen Ur Microscopic Review INDICATED Urine Culture Comments NOT INDICATED 04/12/21 04/12/21 17:33 17:33 WBC RBC Hgb Hct MCV MCH MCHC RDW Plt Count MPV Neut # (Auto) Lymph # (Auto) [place] # (Auto) Eos # (Auto) Baso # (Auto) Absolute Nucleated RBC Nucleated RBC % Sodium Potassium Chloride Carbon Dioxide Anion Gap BUN Creatinine Estimated GFR (MDRD) Glucose Calcium Total Bilirubin AST ALT Alkaline Phosphatase Total Creatine Kinase 176 Troponin I High Sens 5.6 Total Protein Albumin Globulin Albumin/Globulin Ratio Lipase Urine Color Urine Clarity Urine pH Ur Specific [place] Urine Protein Urine Glucose (UA) Urine Ketones Urine Occult Blood Urine Nitrite Urine Bilirubin Urine Urobilinogen Ur Leukocyte Esterase Urine RBC Urine WBC Ur Squamous Epith Cells Urine Bacteria Ur Microscopic Review Urine Culture Comments - Rads (name of study) CT abd/pelvis Radiology: Prelim report reviewed, EMP read contemporaneously, See rad report (No acute abdominal and pelvic findings Stable hepatic cysts and hepatic fatty infiltration. Abdominal aorta and major branches are unremarkable. Moderate fecal debris throughout ) PD MEDICAL DECISION MAKING - ED course Complexity details: reviewed results, re-evaluated patient, considered differential, d/w patient ED course: 70-year-old male with 2 episodes of hematuria today. No acute findings on angiogram of the CT abdomen and pelvis. No evidence of ureteral stone. No renal artery dissection. No aneurysms. No renal contusions that are visible. Asymptomatic here. We will have him follow-up with his doctor for further care. Small amount of blood in the urine, not grossly visible. Patient and family counseled regarding signs and symptoms for which I believe and urgent re- evaluation would be necessary. Patient with good understanding of and agreement to plan and is comfortable going home at this time This document was made in part using voice recognition software. While efforts are made to proofread this document, sound alike and grammatical errors may occur. Departure - Departure Disposition: 01 Home, Self Care Clinical Impression: High blood pressure Qualifiers: Hypertension type: unspecified Qualified Code(s): I10 - Essential (primary) hypertension Hematuria Qualifiers: Hematuria type: unspecified type Qualified Code(s): R31.9 - Hematuria, unspecified Condition: Good Instructions: ED Hematuria Follow-Up: Titi Ocasio MD [Primary Care Provider] - Within 1 week Comments: Follow-up with his doctor for further care. Return if he worsens. There are no acute findings on the CT scan tonight or in his urine. Discharge Date/Time: 04/12/21 19:46
[2021-04-12] MEDS ORDERED: rOPINIRole 1 MG TABLET PO STA (17:21)
[2021-04-12] MEDS ORDERED: CARBIDOPA/LEVODOPA 25 MG/100 MG TABLET PO STA (17:21)
[2021-04-12] MEDS ORDERED: MAG HYDROX/AL HYDROX/SIMETH 30 ML UDC PO STA (17:22)
[2021-04-12] MEDS ORDERED: IOPAMIDOL-300 100 ML VIAL ONE (17:38)
[2021-04-12 19:03] VITALS: BP 236/100
--- NOTE | 2021-04-12 19:11 | CT Report ---
PROCEDURE: ANGIO ABDOMEN/PELVIS W INDICATIONS: hematuria, hypertension CONTRAST: IV CONTRAST: Optiray 320 ml: 100 PO CONTRAST: *NO PO CONTRAST TECHNIQUE: After the administration of intravenous contrast, 2 and 5 mm sections acquired from the diaphragm to the iliac crests. 3-dimensional maximum intensity projection (MIP) coronal and sagittal reformats, a nd/or 3-dimensional volume rendering reformatting was then performed. For radiation dose reduction, the following was used: automated exposure control, adjustment of mA and/or kV according to patient size. COMPARISON: 08/17/2020, January 16, 2015 FINDINGS: Image quality: Excellent. Extravascular tissues: Lung bases are clear. Heart size is normal. Numerous hepatic cysts remain un changed. Diffuse hepatic fatty infiltration present. Spleen is unremarkable. Gallbladder cholecystect bird. Biliary system is non dilated. Pancreas enhances normally. No adrenal nodules. Kidneys are n ormal in size and enhancement, without hydronephrosis. Non-opacified bowel loops demonstrate normal wall thickness and caliber. No free fluid or air. No retroperitoneal or mesenteric adenopathy. No ventral hernias. No suspicious bony abnormalities. No vertebral body compression fractures. Moderat e fecal debris throughout the colon. Abdominal aorta smoothly tapers without evidence of aneurysm or dissection. Major branches are unrema rkable including the SMA, celiac and both renal arteries. There is a small accessory left renal arter y noted. IMPRESSION: No acute abdominal and pelvic findings Stable hepatic cysts and hepatic fatty infiltration. Abdominal aorta and major branches are unremarkable. Moderate fecal debris throughout Reviewed by: Gen Roth MD on 04/12/2021 6:09 PM [facility] Approved by: Gen Roth MD on 04/12/2021 6:09 PM [facility] Station ID: [id number]
[2021-04-12] MEDS ORDERED: IOVERSOL 320 100 ML VIAL IVP ONE (19:54)
== END 2021-04-12 19:46 | disposition home or self-care (01) ==
LOC: ED 15:57
DX: R31.9 Hematuria, unspecified (principal); I10 Essential (primary) hypertension; S30.1XXA Contusion of abdominal wall, initial encounter; W17.89XA Other fall from one level to another, initial encounter; G20 Parkinson's disease
CPT/HCPCS: 36415; 74174; 80053; 81001; 82550; 83690; 84484; 85025; 93005; 99284; A9270; 81003; 87086

== ENCOUNTER 2021-06-19 14:06 | Outpatient (CLI) | payer MEDICARE, OTHER | END 2021-06-19 14:07 | disposition critical access hospital (66) | LOC: EMS 14:06 | DX: R41.0 Disorientation, unspecified (principal) | CPT/HCPCS: A0425; A0429 ==

== ENCOUNTER 2021-06-19 14:08 | Observation (INO) | payer MEDICARE, OTHER ==
--- NOTE | 2021-06-19 14:35 | ED Physician Documentation ---
History of Present Illness - Stated complaint Stated Complaint: CODE STROKE - Additonal information Additional information: 70-year-old male is brought into the emergency department for evaluation of acute aphasia. This gentleman does have a history of Parkinson's disorder. Last seen normal at 1325. Per history he was in the bathroom and the heard a thud. She found him on the floor near the toilet unable to communicate. When EMS arrived the patient had very slurred words. He did also have some very subtle left-sided facial droop. PMH: parkinsons MEDS: Gabapentin, metformin, levacarbidopa, ropirinol Review of Systems Unable to obtain: Other (Code stroke aphasia. History obtained from EMS.) PD PAST MEDICAL HISTORY - Past Medical History Cardiovascular: Hypertension, Other Respiratory: Sleep apnea Neuro: Parkinson's Endocrine/Autoimmune: None GI: GERD : Benign prostate hypertrophy HEENT: Other Psych: None Musculoskeletal: None Derm: None - Past Surgical History Past Surgical History: Yes General: Cholecystectomy Derm: Other - Present Medications Home Medications: Ambulatory Orders Medication Instructions Recorded Confirmed Ropinirole HCl [Requip Xl] 2 mg PO TID 09/05/13 04/12/21 Esomeprazole Magnesium [Nexium] 20 mg PO DAILY 04/11/17 04/12/21 Gabapentin 100 mg PO PRN PRN 08/17/20 04/12/21 Carbidopa/Levodopa 25/100 [Sinemet 1 each PO BID 12/11/20 04/12/21 25 mg/100 mg] Cholecalciferol (Vitamin D3) 1,250 mcg PO PRN PRN 12/11/20 04/12/21 [Vitamin D3] metFORMIN [Glucophage] 1,000 mg PO DAILY 12/11/20 04/12/21 - Allergies Allergies/Adverse Reactions: Allergies Allergy/AdvReac Type Severity Reaction Status Date / Time No Known Drug Allergies Allergy Verified 06/19/21 14:32 - Social History Does the pt smoke?: No Smoking Status: Never smoker Does the pt drink ETOH?: Yes Does the pt have substance abuse?: No - Immunizations Immunizations are current?: Yes - POLST Patient has POLST: No PD ED PE EXPANDED - General General: Other (aphasic) - Cardiac Cardiac: Regular Rate, Radial strong equal, Pedal strong equal, Cap refill < 2 sec. No: Murmur Present - Respiratory Respiratory: Clear to ausultation andreina. No: Distress - Abdomen Abdomen: Normal Bowel sounds. No: Tender to palpation - Neuro Neuro: Alert and Oriented X 3, CNII-XII intact (Initially presented with mild left-sided facial droop.) - GCS Eye Opening: Spontaneous Motor: Obeys Commands Verbal: Incomprehensible Total: 12 Results - Vitals Vitals: Vital Signs - 24 hr 06/19/21 06/19/21 06/19/21 14:08 14:48 15:18 Temperature 36.7 C Heart Rate 58 L 75 67 Respiratory 18 16 18 Rate Blood Pressure 213/97 H 213/97 H 156/101 H O2 Saturation 98 97 96 06/19/21 15:30 Temperature Heart Rate 64 Respiratory 18 Rate Blood Pressure 171/92 H O2 Saturation 95 Oxygen O2 Source Room air - EKG (time done) 1450 Rate: Rate (enter#) (67) Rhythm: NSR [place]: Normal Intervals: Normal [place]. No: Prolonged QT QRS: Poor R wave progression Ischemia: Q waves (inferior old) Compare to prior EKG: Old EKG unavailable Computer interpretation: Agree with computer - Labs Labs: Laboratory Tests 06/19/21 06/19/21 06/19/21 14:30 14:30 14:30 WBC 6.0 RBC 4.37 L Hgb 13.1 L Hct 38.2 L MCV 87.4 MCH 30.0 MCHC 34.3 RDW 12.6 Plt Count 122 L MPV 12.3 H Neut # (Auto) 3.9 Lymph # (Auto) 1.1 L [place] # (Auto) 0.5 Eos # (Auto) 0.3 Baso # (Auto) 0.1 Absolute Nucleated RBC 0.00 Nucleated RBC % 0.0 Manual Slide Review Indicated Platelet Estimate DECREASED (<130,000) Platelet Morphology RARE GIANT PLATELETS RBC Morph Micro Appear NORMAL APPEARANCE Sodium 141 Potassium 2.5 L* Chloride 95 L Carbon Dioxide 30 Anion Gap 16.0 H BUN 12 Creatinine 1.0 Estimated GFR (MDRD) 74 L Glucose 148 H Calcium 8.7 Total Bilirubin 0.8 AST 28 ALT 11 Alkaline Phosphatase 56 Troponin I High Sens 20.6 H* Total Protein 7.2 Albumin 4.0 Globulin 3.2 Albumin/Globulin Ratio 1.3 Lipase 19 L Urine Color Urine Clarity Urine pH Ur Specific [place] Urine Protein Urine Glucose (UA) Urine Ketones Urine Occult Blood Urine Nitrite Urine Bilirubin Urine Urobilinogen Ur Leukocyte Esterase Ur Microscopic Review Urine Culture Comments 06/19/21 15:46 WBC RBC Hgb Hct MCV MCH MCHC RDW Plt Count MPV Neut # (Auto) Lymph # (Auto) [place] # (Auto) Eos # (Auto) Baso # (Auto) Absolute Nucleated RBC Nucleated RBC % Manual Slide Review Platelet Estimate Platelet Morphology RBC Morph Micro Appear Sodium Potassium Chloride Carbon Dioxide Anion Gap BUN Creatinine Estimated GFR (MDRD) Glucose Calcium Total Bilirubin AST ALT Alkaline Phosphatase Troponin I High Sens Total Protein Albumin Globulin Albumin/Globulin Ratio Lipase Urine Color YELLOW Urine Clarity CLEAR Urine pH 6.5 Ur Specific [place] 1.010 Urine Protein NEGATIVE Urine Glucose (UA) NEGATIVE Urine Ketones TRACE Urine Occult Blood NEGATIVE Urine Nitrite NEGATIVE Urine Bilirubin NEGATIVE Urine Urobilinogen 0.2 (NORMAL) Ur Leukocyte Esterase NEGATIVE Ur Microscopic Review NOT INDICATED Urine Culture Comments NOT INDICATED - Rads (name of study) angio head Radiology: Final report received (No acute intracranial hemorrhage. No infarct identified. No large vessel occlusion. 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 origin of the left ADULT AND PEDIATRIC NEUROLOGIST) angio neck Radiology: Final report received (No large vessel occlusion. No critical stenosis. Severely hypoplastic left vertebral artery.) PD MEDICAL DECISION MAKING - ED course Complexity details: reviewed results, re-evaluated patient, d/w patient ED course: 70-year-old male presented to the emergency department for evaluation of kamille pected stroke. He does have a history of Parkinson'sHe was on the toilet when his heard a thud found him unresponsive on the floor. At the time at home he was aphasic and unable to communicate on presentation to the ER he initially had subtle left-sided facial droop and could not speak. He was sent emergently to the CAT scanner and as he returns here he is now vocalizing though tearful. Last normal 1325. Patient was seen and evaluated by Sandra Scott neurologist Dr. Vasquez. Upon return to the CAT scan patient is now able to verbalize and appears to be back at his baseline per the . The angios of the head and neck show hypoplastic vertebral arteries as well as an CANDACE but the neurologist does not feel that this explains the unwitnessed syncope and collapse. He is noted to be fairly hypokalemic with a potassium of 2.5. I have ordered repletion of this. Teleneurologist would recommend admission to the hospital for further evaluation. Correction of his hypokalemia and repeat CT in the a.m. To rule out any acute changes overnight. Given his deep brain stimulator he is not a candidate for an MRI. His EKG does not show any ischemic changes. He does have old inferior Q waves. His urine shows no signs of infection. I spoke with Dr. Reardon admitting day hospitalist who graciously agrees to meet this patient for observation further evaluation of his neurologic status as well as repletion of his hypokalemia. Departure - Departure Disposition: ED Place in Observation Clinical Impression: Hypokalemia, History of Parkinson's disease, Syncope and collapse Discharge Date/Time: 06/19/21 16:36
[2021-06-19 14:45] LABS: BASOPHILS # (AUTO) 0.1 10^3/uL (0.0-0.1); EOSINOPHILS # (AUTO) 0.3 10^3/uL (0.0-0.7); EOSINOPHILS % (AUTO) 5.7 %; HCT - HEMATOCRIT 38.2 % (42.0-52.0); HGB - HEMOGLOBIN 13.1 g/dL (14.0-18.0); LYMPHOCYTES # (AUTO) 1.1 10^3/uL (1.5-3.5); LYMPHOCYTES % (AUTO) 18.8 %; MEAN CORPUSCULAR HGB CONC 34.3 g/dL (32.0-36.0); MEAN CORPUSCULAR VOLUME 87.4 fL (80.0-94.0); MEAN PLATELET VOLUME 12.3 fL (7.4-11.4); MONOCYTES # (AUTO) 0.5 10^3/uL (0.0-1.0); MONOCYTES % (AUTO) 8.7 %; NEUTROPHILS # (AUTO) 3.9 10^3/uL (1.5-6.6); NEUTROPHILS % (AUTO) 65.5 %; PLT - PLATELET COUNT 122 10^3/uL (130-450); RED BLOOD COUNT 4.37 10^6/uL (4.70-6.10); RED CELL DISTRIBUTION WIDTH 12.6 % (12.0-15.0)
--- NOTE | 2021-06-19 14:48 | CT Report ---
PROCEDURE: ANGIO HEAD W/WO INDICATIONS: L sided facial droop CONTRAST: IV CONTRAST: Isovue 300 ml: 80 PO CONTRAST: *NO PO CONTRAST TECHNIQUE: Precontrast 4.5 mm thick angled axial sections acquired from the foramen magnum to the vertex. Afte r the administration of intravenous contrast, 1 mm thick sections acquired through the [place] of [place] is. Postcontrast 4.5 mm thick sections then re-acquired from the foramen magnum to the vertex. 3-di mensional rwvvhjk-swwdaxbki-sjhdwreodh (MIP) and/or volume rendering reformats were acquired of the c entral intracranial vasculature. For radiation dose reduction, the following was used: automated ex posure control, adjustment of mA and/or kV according to patient size. COMPARISON: Head CT 12/11/2020, 08/04/2020. FINDINGS: Image quality: Excellent. Anterior circulation: Intracranial internal carotid arteries are normal in size and flow. Left anter ior CANDACE A1 segment is severely hypoplastic. The flow within the middle cerebral arteries is normal an d symmetric. The anterior communicating artery is seen. No aneurysms are seen. Posterior circulation: origin of the left INTERNAL MEDICINE DOCTOR off of the MCA. Left vertebral artery is diminuti ve. Flow within the posterior cerebral arteries is normal and symmetric. No aneurysms are seen. CSF spaces: Ventricles are normal in size and shape. Basal cisterns are patent. No extra-axial flu id collections. Brain: Brain stimulator leads. No midline shift. No intracranial bleeds or masses. Patel-white dontae er interface appears intact. Skull and face: Calvarium and facial bones appear intact, without suspicious lesions. Sinuses: The paranasal sinuses are clear. Question of trace mucosal thickening in the right mastoid a ir cell inferiorly partially visualized. IMPRESSION: 1. No acute intracranial hemorrhage. 2. No infarct identified. 3. No large vessel occlusion. 4. 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 origin of the left INTERNAL MEDICINE DOCTOR. Results were communicated to Lupis Stein at 06/19/2021 2:46 PM PDT. Reviewed by: Anjum Chaudhary MD on 06/19/2021 2:47 PM PDT Approved by: Anjum Chaudhary MD on 06/19/2021 2:47 PM PDT Station ID: [id number]
[2021-06-19 14:50] LABS: SLIDE REVIEW? Indicated
--- NOTE | 2021-06-19 14:53 | CT Report ---
PROCEDURE: ANGIO NECK W INDICATIONS: L sided facial droop, L neck pain CONTRAST: IV CONTRAST: Isovue 300 ml: 80 PO CONTRAST: *NO PO CONTRAST TECHNIQUE: After the administration of intravenous contrast, 1.5 mm axial sections acquired from the aortic arch to the [place] of [place]. Coronal 3-D maximum intensity projection (MIP) and/or volume rendering ref ormats were then performed. For radiation dose reduction, the following was used: automated exposur e control, adjustment of mA and/or kV according to patient size. COMPARISON: Same day noncontrast head CT and CTA head. FINDINGS: Image quality: Excellent. Carotid system: The great vessels demonstrate a conventional anatomy as they arise from the aortic a rch. The origins of the common carotid arteries appear patent. The common carotid arteries demonstr ate normal calibers and courses. The bifurcation regions appear normal bilaterally. The internal ca rotid arteries demonstrate normal caliber and course. No significant plaque at the carotid bulbs. Tor tuous distal right ICA. Posterior circulation: The origins of the vertebral arteries appear patent. Left vertebral artery is severely hypoplastic. They join to form a normal appearing basilar artery. Soft tissues: Visualized neck soft tissues demonstrate no suspicious abnormalities. The thyroid is normal in size and there are no incidental findings. Bones: No suspicious bony lesions. Moderate degenerative change in the cervical spine most pronounc ed at C5-C6. Visualized cervical spine appears normally aligned. IMPRESSION: 1. No large vessel occlusion. 2. No critical stenosis. 3. Severely hypoplastic left vertebral artery. The estimate of stenosis included in the report of the imaging study was calculated using the NASCET method Reviewed by: Anjum Chaudhary MD on 06/19/2021 2:51 PM PDT Approved by: Anjum Chaudhary MD on 06/19/2021 2:51 PM PDT Station ID: [id number]
[2021-06-19 14:57] LABS: ALBUMIN/GLOBULIN RATIO 1.3 (1.0-2.2); BILIRUBIN,TOTAL 0.8 mg/dL (0.2-1.0); CALCIUM 8.7 mg/dL (8.5-10.3); TOTAL PROTEIN 7.2 g/dL (6.7-8.2)
[2021-06-19 15:08] LABS: POTASSIUM 2.5 mmol/L (3.5-5.0)
[2021-06-19 15:12] LABS: PLATELET ESTIMATE, MANUAL DECREASED (<130,000) (NORMAL); PLATELET MORPHOLOGY RARE GIANT PLATELETS (NORMAL); RBC MORPHOLOGY (MULTIPLE) NORMAL APPEARANCE (NORMAL)
[2021-06-19 15:53] LABS: BILIRUBIN,URINE NEGATIVE (NEGATIVE); GLUCOSE, URINE (UA) NEGATIVE (NEGATIVE); KETONES,URINE (UA) TRACE mg/dL (NEGATIVE); LEUKOCYTE ESTERASE, URINE NEGATIVE (NEGATIVE); NITRITE,URINE NEGATIVE (NEGATIVE); OCCULT BLOOD,URINE NEGATIVE (NEGATIVE); PH,URINE 6.5 PH (5.0-7.5); PROTEIN,URINE NEGATIVE (NEGATIVE); UROBILINOGEN,URINE 0.2 (NORMAL) E.U./dL (NORMAL)
--- NOTE | 2021-06-19 15:56 | HISTORY & PHYSICAL EXAMINATION ---
Chief Complaint - Chief Complaint Chief Complaint: fall with LOC History of Present Illness - Admitted From Admitted From:: home via EMS - History Obtained From Records Reviewed: [facility] History obtained from: ROBERT Graham and [facility] Exam Limitations: his dementia, he smiles when he says that - History of Present Illness HPI Comment/Other: 70-year-old white male who has Parkinson's disease and lives with his . His primary care provider is Titi Ocasio and is followed by Jono Lopez for neurology. He has a brain stimulator. When the brain stimulator is active, he will develop a speech change where he speaks out of the left side of his mouth. Today he was in his usual state of health. There is been no change in medications, no change in diet. There has been no fever, chills. No change in mental status. The heard a loud fall and she found him in the bathroom. He was unresponsive, not speaking, not opening his eyes and they called EMS. Because of a slight left facial droop he was brought in as a code stroke. He remained aphasic and EMS, during triage. He did not start to speak again until he came back from the CT scanner that was done for a code stroke. He CT angiogram shows a hypoplastic, congenital left vertebral artery. But no other findings that indicate a stroke.Of note, when I reviewed his outpatient medical chart he has orthostatic hypotension and has been on increasing doses of midodrine. The neurologist has prescribed thigh-high compression stockings but the patient and his were not able to get the monitor as they are too tight. He is already had several falls. One fall resulted in 2 episodes of gross hematuria in March. ROBERT Almeida spoke to neurology. They feel that the patient's syncope may be due to potassium. He is 2.5. Orthostatic vitals were not done in the ER. He is not acutely anemic. There is no fever, white cell count. Neurology would like him to have a repeat scan tomorrow after an overnight stay. As such the patient is placed in observation. His symptoms started in 2005 with right upper extremity tremor. 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 Tingling of his feet that have been going on for years. Florinef started July 2020. Gabapentin also started at that time. Ropinirole has been decreased, gabapentin has been continued, and has been slowly titrated down on his Florinef. With his neurology notes he has descriptions of near syncope several times a week. History - Past Medical History Cardiovascular: reports: Hypertension, Other Respiratory: reports: Sleep apnea. denies: CPAP use Neuro: reports: Parkinson's (s/p STN DBS R 2013, L 2014,) Endocrine/Autoimmune: reports: None GI: reports: GERD : reports: Benign prostate hypertrophy HEENT: reports: Other (vocal cord surgery for lesion) Psych: reports: None Musculoskeletal: reports: None Derm: reports: None MRSA Hx?: No - Past Surgical History General: reports: Cholecystectomy (Open.) Derm: reports: Other - Family & Social History Family History Comment/Other: Mom was healthy and of old age. Dad of dementia at a young age he also had heart disease. He does not remember siblings or what they have,. Did not have children. Living arrangement: At home Living Situation: With spouse/s.o. Social History Notes: He smoked half a pack per day for 15 years. Stopped in 1984. No history of alcohol abuse. 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 Lives with his of many years. Before the Parkinson's he enjoyed golfing and working on his computer and doing gardening. - Substance History Use: Uses substance without health or social issues: NONE Abuse: Recurrent use of substance despite neg consequences: NONE Dependence: Experiences withdrawal or developed tolerances: NONE - POLST Patient has POLST: No POLST Status: Full Code Meds/Allgy - Home Medications Home Medications: Ambulatory Orders Medication Instructions Recorded Confirmed Ropinirole HCl [Requip Xl] 2 mg PO BID 09/05/13 06/19/21 Gabapentin 200 mg PO TID 08/17/20 06/19/21 Carbidopa/Levodopa 25/100 [Sinemet 1.5 each PO TID 12/11/20 06/19/21 25 mg/100 mg] metFORMIN [Glucophage] 1,000 mg PO DAILY 12/11/20 06/19/21 Droxidopa 100 mg PO QPM 06/19/21 06/19/21 Droxidopa 200 mg PO 0700,1600 06/19/21 06/19/21 Fludrocortisone [Florinef] 0.2 mg PO TID 06/19/21 06/19/21 - Allergies Allergies/Adverse Reactions: Allergies Allergy/AdvReac Type Severity Reaction Status Date / Time No Known Drug Allergies Allergy Verified 06/19/21 14:32 Review of Systems - Constitutional Constitutional: reports: Fatigue, Weakness, Other (Anosmia. Interesting enough he can still taste food.). denies: Fever, Chills, Malaise - Eyes Eyes: denies: Pain, Irritation - Ears, Nose & Throat Ears, Nose & Throat: reports: Other - Cardiovascular Cariovascular: reports: Lightheadedness, Syncope. denies: Irregular heart rate, Palpitations, Chest pain, Edema - Respiratory Respiratory: reports: Sputum production, Snoring, Apnea. denies: Cough, Wheezing, SOB at rest, SOB with exertion - Gastrointestinal Gastrointestinal: reports: Constipation (Off and on. More prone to constipation than not.), Reflux/heartburn. denies: Black stools, Bloody stools, Nausea, Vomiting - Genitourinary Genitourinary: reports: Frequency, Urgency, Hematuria (When he fell earlier this year he did have blood). denies: Dysuria - Musculoskeletal Musculoskeletal: reports: Back pain, Stiffness. denies: Muscle pain, Muscle aches - Integumentary Integumentary: denies: Rash, Pruritis, Lesions - Neurological Neurological: reports: General weakness, Memory problems (With increased slowing of cognitive abilities. Cannot multitask. Readily states that to me.), Pre- existing deficit, Abnormal gait, Incoordination, Slurred speech - Psychiatric Psychiatric: denies: Depression, Anxiety, Suicidal - Endocrine Endocrine: denies: Polyuria, Polydypsia, Polyphagia - Hematologic/Lymphatic Hematologic/Lymphatic: denies: Anemia, Bruising, Petechiae, Blood clots Prior Level of Functionality: Need significant help with bathing him, dressing him. He does not drive. Uses a walker. He says that he is able to feed himself. Exam - Vital Signs Reviewed Vital Signs: Yes Vital Signs: Vital Signs x48h Temp Pulse Resp BP Pulse Ox 06/19/21 15:30 64 18 171/92 H 95 06/19/21 15:18 67 18 156/101 H 96 06/19/21 14:48 75 16 213/97 H 97 06/19/21 14:08 36.7 C 58 L 18 213/97 H 98 - Physical Exam General Appearance: positive: No acute distress, Alert, Other (Pleasant male, sitting upright in bed, using his right hand to feed himself very slowly. No tremors. Watching TV at the same time. Flat, bradykinetic movements of hands and face. Flat monotonic voice. But will slowly smile when he makes a joke.) Eyes Bilateral: positive: PERRL, EOMI ENT: positive: No signs of dehydration, Other (On the top of his bald head he has 2 nodules that almost look like corns out of his skull. He says those are his right and left deep brain stimulators.) Neck: positive: No JVD. negative: Stiff neck Respiratory: positive: No respiratory distress. negative: Wheezes, Rales, Rhonchi Cardiovascular: positive: Regular rate & rhythm, Systolic murmur. negative: Gallop/S4, Friction rub Peripheral Pulses: positive: 0 Abdomen: positive: Non-tender, No organomegaly, Nml bowel sounds, No distention Skin: positive: Warm, Dry, Pallor Extremities: positive: Full ROM, No pedal edema, Other (He is not cyanotic but his nailbeds are quite pale) Neurologic/Psychiatric: positive: Oriented x3 (Gone time but he knows he is in the hospital and he knows he is here because he passed out. He does not remember passing out), Slurred/abnml speech. negative: CN's nml (2-12) (Dysarthric. Flat face expression. Able to swallow the food he puts in his mouth without choking.He does not have nystagmus. I can get him to go uses Astra operative movements up and down into the right and left. He is hearing me well. Can shrug his shoulders. Tongue seems to be moving normally), Motor nml (On his own, he actually shows me his cogwheel rigidity. Seems to be a little bit worse on the left than the right. He says that his bending his arms and using his hands is "stiff". Seems to have slight weakness on the left side in comparison to the right. That is using his arms. Both legs come) Conclusion/Plan - Problem List (1) Syncope and collapse Conclusion/Plan: From his history, this patient has orthostatic syncope that is well-documented. Has even been seen in our emergency room in March 2021 with a nerve contusion that he gave himself hematuria. The neurologist that was consulted for him was the stroke center at [place]. This patient's neurologist who is Jono Lopez is the [facility]. Plan: Observation status Follow through on the recommendations of the neurologist for CT of the head Discharge tomorrow morning after the CT Try and get orthostatic vitals on him before he leaves. Is can be difficult, due to his difficulty standing but I will have nursing try (2) Hypokalemia Conclusion/Plan: No recent change in medications. No nausea and vomiting. No diarrhea. Plan: Supplement and recheck in 4 hours. (3) High blood pressure Conclusion/Plan: I really hesitate to increase his patient's medications. His blood pressure can be measured at 213 systolic but then come down to 156 systolic. He has documented orthostatic hypotension and probably orthostatic syncope. He has been difficult to manage even with the neurologist. He has been up and down on his Florinef. I do not think I am going to add medication. Qualifiers: Hypertension type: unspecified Qualified Code(s): I10 - Essential (primary) hypertension (4) Parkinsons disease Conclusion/Plan: Almost all of his medications are nonformulary. I will resume them. He can take his own meds. - Lab Results Lab results reviewed: Yes Fish Bones: 06/19/21 14:30 06/19/21 14:30 - Diagnostic Imaging Results Diagnostic Imaging Results: positive: Final report reviewed Diagnostic Imaging Results Comments: CT angiogram of the neck and head were reviewed. Hypoplastic left vertebral artery. No stroke. Core Measures - Anticipated LOS I expect patient to be DC'd or transferred within 96 hours.: Yes - DVT/VTE - Prophylaxis VTE/DVT Device ordered at admit?: Yes
[2021-06-19] MEDS ORDERED: ONDANSETRON 4 MG/2 ML VIAL IVP PRN (15:57)
[2021-06-19] MEDS ORDERED: ACETAMINOPHEN 325 MG TABLET PO PRN (15:57)
[2021-06-19] MEDS ORDERED: ONDANSETRON ODT 4 MG TABLET TL PRN (15:57)
[2021-06-19] MEDS ORDERED: SODIUM CHLORIDE FLUSH 0.9% 10 ML SYRINGE IVP PRN (15:57)
[2021-06-19 15:59] LABS: CLARITY,URINE CLEAR (CLEAR)
[2021-06-19] MEDS: POTASSIUM CHLOR 10 MEQ/100 ML 10 MEQ/100 ML BAG IV SCH ×4 (15:59→21:48)
[2021-06-19] MEDS ORDERED: SODIUM CHLORIDE 0.9% 1,000 ML IV SCH (16:00)
[2021-06-19 16:38] LABS: INR 1.2 (0.8-1.2); PT - PROTHROMBIN TIME 13.1 secs (9.9-12.6)
[2021-06-19 17:10] LABS: B. PARAPERTUSSIS- RESP PCR PAN NOT DETECTED; B. PERTUSSIS- RESP PCR PANEL NOT DETECTED; C. PNEUMONIAE- RESP PCR PANEL NOT DETECTED; CORONAVIRUS 229E-RESP PCR NOT DETECTED; CORONAVIRUS HKU1-RESP PCR NOT DETECTED; CORONAVIRUS NL63-RESP PCR NOT DETECTED; CORONAVIRUS OC43-RESP PCR NOT DETECTED; HUMAN METAPNEUMOVIRUS NOT DETECTED; INFLUENZA A- RESP PCR PANEL NOT DETECTED; INFLUENZA B - RESP PCR PANEL NOT DETECTED; M. PNEUMONIAE- RESP PCR PANEL NOT DETECTED; PARAINFLUENZA VIRUS 1 NOT DETECTED; PARAINFLUENZA VIRUS 2 NOT DETECTED; PARAINFLUENZA VIRUS 3 NOT DETECTED; PARAINFLUENZA VIRUS 4 NOT DETECTED; RHINOVIRUS/ENTEROVIRUS NOT DETECTED; RSV- RESP PCR PANEL NOT DETECTED; SARS-CoV-2 -RESP PCR PANEL NOT DETECTED
--- NOTE | 2021-06-19 17:22 | PHARMACY PROGRESS NOTE ---
- Best Possible Medication History Admit Date and Time: 06/19/21 1557 Processed by: Pharmacy Medication History completed: Yes Patient Interview: Completed Secondary Source(s): Prescription bottles, Spouse/Significant other, Pharmacy records, Insurance records As the person ultimately responsible for medication therapy, providers are able to order a medication from an existing home medication list in [facility] via the "Reconcile Routine" prior to Confirmation of that medication by program support assistant. Such practice is discouraged except when the physician, in their clinical judgment, deems that a medical need exists for a medication without regard to previous use.
--- NOTE | 2021-06-19 17:48 | XRAY Report ---
PROCEDURE: Chest 1 View X-Ray INDICATIONS: chest pain TECHNIQUE: One view of the chest was acquired. COMPARISON: 08/17/2020, 08/14/2020 FINDINGS: Surgical changes and devices: Bilateral neural stimulators are seen. Cholecystectomy clips are seen. Lungs and pleura: No pleural effusions or pneumothorax. Lungs are clear. Mediastinum: Mediastinal contours appear normal. Heart size is normal. Bones and chest wall: No suspicious bony lesions. Age-appropriate degenerative changes are seen. Overlying soft tissues appear unremarkable. IMPRESSION: No acute abnormality is seen. Bilateral neurostimulators can be seen. Reviewed by: Deng Fuentes MD on 06/19/2021 4:47 PM AKDT Approved by: Deng Fuentes MD on 06/19/2021 4:47 PM AKDT Station ID: [id number]
[2021-06-19] MEDS: SODIUM CHLORIDE FLUSH 0.9% 10 ML SYRINGE IVP SCH (19:25)
[2021-06-19] MEDS ORDERED: IOPAMIDOL-300 100 ML VIAL ONE (19:25)
[2021-06-19] MEDS ORDERED: IOPAMIDOL-300 100 ML VIAL IVP ONE (19:42)
[2021-06-19] MEDS: GABAPENTIN 100 MG CAPSULE PO SCH (20:57)
[2021-06-19] MEDS: FLUDROCORTISONE 0.1 MG TABLET PO SCH (20:57)
[2021-06-19] MEDS: REQUIP 2 MG PO SCH (20:59)
[2021-06-19] MEDS ORDERED: DROXIDOPA 100 MG PO SCH (21:00)
[2021-06-19] MEDS ORDERED: ROPINIROLE HCL 4 MG PO SCH (21:00)
[2021-06-19] MEDS ORDERED: FLUDROCORTISONE 0.1 MG TABLET PO SCH (22:00)
[2021-06-19] MEDS ORDERED: GABAPENTIN 100 MG CAPSULE PO SCH (22:00)
[2021-06-20] MEDS: SODIUM CHLORIDE FLUSH 0.9% 10 ML SYRINGE IVP SCH ×2 (00:05→08:42)
[2021-06-20] MEDS: GABAPENTIN 100 MG CAPSULE PO SCH ×2 (06:25→11:28)
[2021-06-20] MEDS: FLUDROCORTISONE 0.1 MG TABLET PO SCH ×2 (06:26→11:28)
[2021-06-20] MEDS: CARBIDOPA/LEVODOPA 25 MG/100 MG TABLET PO SCH ×2 (06:26→11:28)
[2021-06-20] MEDS ORDERED: metFORMIN 500 MG TABLET PO SCH ×2 (06:30→08:00)
[2021-06-20] MEDS ORDERED: CARBIDOPA/LEVODOPA 25 MG/100 MG TABLET PO SCH (06:30)
[2021-06-20] MEDS: REQUIP 2 MG PO SCH (06:34)
[2021-06-20 06:48] LABS: CALCIUM 8.6 mg/dL (8.5-10.3)
[2021-06-20 06:51] LABS: POTASSIUM 2.4 mmol/L (3.5-5.0)
[2021-06-20] MEDS ORDERED: DROXIDOPA 100 MG PO SCH (07:00)
[2021-06-20] MEDS: POTASSIUM CHLOR 10 MEQ/100 ML 10 MEQ/100 ML BAG IV SCH ×4 (07:08→11:23)
[2021-06-20] MEDS ORDERED: MAGNESIUM SULFATE 2 GRAM 2 GM/50 ML BAG IV ONE (07:50)
--- NOTE | 2021-06-20 10:07 | CT Report ---
PROCEDURE: HEAD WO INDICATIONS: syncope TECHNIQUE: Noncontrast 4.5 mm thick angled axial sections acquired from the foramen magnum to the vertex. For r adiation dose reduction, the following was used: automated exposure control, adjustment of mA and/or kV according to patient size. COMPARISON: 06/19/2021 FINDINGS: Image quality: There is artifact associated with the metallic hardware. CSF spaces: Basal cisterns are patent. No extra-axial fluid collections. Ventricles are normal in size and shape. Brain: Bilateral deep brain neural stimulators are seen. No midline shift. No intracranial masses o r hemorrhage. Patel-white matter interface is normal. Skull and face: Calvarium and visualized facial bones are intact, without suspicious lesions. Sinuses: Visualized sinuses and mastoids are clear. IMPRESSION: No significant, acute intracranial abnormality is seen. Bilateral deep brain neural stimulators can be seen. Reviewed by: Deng Fuentes MD on 06/20/2021 9:06 AM [facility]IR[facility] Approved by: Deng Fuentes MD on 06/20/2021 9:06 AM AMIRA Station ID: [id number]
--- NOTE | 2021-06-20 14:44 | Discharge Plan ---
Discharge Plan Problem Reviewed?: Yes Disposition: Home, Self Care Condition: Fair Prescriptions: Potassium Chloride 20 meq PO BID #14 tab Diet: Regular Activity Restrictions: Activity as Tolerated Shower Restrictions: Yes (all activites must be with stand by assist) Driving Restrictions: Yes (no driving) Assistance Devices: Wheelchair, Walker Health Concerns: You were brought to the hospital by ambulance because you had passed out in the bathroom today. You have a history of nearly passing out on multiple occasions. You are already followed by neurology for this as well as your Parkinson's disease. They have been trying to adjust her medication on the basis of your blood pressure, nearly passing out, and movement disorder. In the emergency room you were evaluated for stroke and your CT of the head was negative. Repeat CT of the head was also negative. We monitor you for heart rhythm abnormalities due to low potassium. There were no heart rhythm abnormalities. You did require potassium supplementation in the hospital. We will be sending you home on potassium supplementation. You were not having a heart attack. Plan of Treatment: 1. I will send you home on some potassium tablets twice a day. I would like you to recheck your potassium next week. Please have Dr. Ocasio check that level to make sure if you need more or you can stop it. 2. I would like you to see Dr. Ocasio in the next 1 to 2 weeks. 3. Please see your neurologist at your regular scheduled visit. 4. You were evaluated by physical therapy, and your therapist knows you quite well. He has seen you many times in the past. He feels that you would benefit from continued physical therapy in the outpatient setting and I will be ordering that. 5. Overall, we think that your passing out had to do with reduced blood flow to your head. This was more severe than usual. But this was due to the usual problems of your Parkinson's and high blood pressure/low blood pressure management. Care Goals: To remain with a steady state with regards to your Parkinson's disease for as long as possible. Assessment: Patient has some cognitive deficits with regards to information processing, but he understood the conversation. Asked appropriate questions. His , advocate, was at the bedside and all questions were answered. Follow-Up Care: Outpatient Rehab - PT, Outpatient Rehab - OT No Smoking: If you smoke, Please STOP! Call for help. Follow-up with: Titi Ocasio MD [Primary Care Provider] -
[2021-06-20] MEDS ORDERED: POTASSIUM CHLORIDE 20 MEQ TABLET PO ONE (15:00)
--- NOTE | 2021-06-20 15:12 | DISCHARGE SUMMARY ---
Discharge Summary Admit Date: 06/19/21 Discharge Date: 06/20/21 Discharging Provider: Krysta Reardon MD Primary Care Provider: Titi Ocasio MD Code Status: Attempt Resuscitation Condition at Discharge: Fair Discharge Disposition: 01 Home, Self Care - DIAGNOSES Discharge Diagnoses with Status of Each Condition: 1. Orthostatic syncope 2. Hypokalemia 3. Hypertension 4. Orthostatic hypotension 5. Idiopathic Parkinson's disease 6. Risk of falling - HPI History of Present Illness: 70-year-old white male who has Parkinson's disease and lives with his . His primary care provider is Titi Ocasio and is followed by Jono Lopez for neurology. He has a brain stimulator. When the brain stimulator is active, he will develop a speech change where he speaks out of the left side of his mouth. Today he was in his usual state of health. There is been no change in medications, no change in diet. There has been no fever, chills. No change in mental status. The heard a loud fall and she found him in the bathroom. He was unresponsive, not speaking, not opening his eyes and they called EMS. B ecause of a slight left facial droop he was brought in as a code stroke. He remained aphasic and EMS, during triage. He did not start to speak again until he came back from the CT scanner that was done for a code stroke. He CT angiogram shows a hypoplastic, congenital left vertebral artery. But no other findings that indicate a stroke.Of note, when I reviewed his outpatient medical chart he has orthostatic hypotension and has been on increasing doses of midodrine. The neurologist has prescribed thigh-high compression stockings but the patient and his were not able to get the monitor as they are too tight. He is already had several falls. One fall resulted in 2 episodes of gross h ematuria in March. ROBERT Almeida spoke to neurology. They feel that the patient's syncope may be due to potassium. He is 2.5. Orthostatic vitals were not done in the ER. He is not acutely anemic. There is no fever, white cell count. Neurology would like him to have a repeat scan tomorrow after an overnight stay. As such the patient is placed in observation. His symptoms started in 2005 with right upper extremity tremor. 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 Tingling of his feet that have been going on for years. Florinef started 2019. Gabapentin also started at that time. Ropinirole has been decreased, gabapentin has been continued, and has been slowly titrated down on his Florinef. With his neurology notes he has descriptions of near syncope several times a week.They have been titrating up his Florinef and titrating down his Parkinson's drugs. This was in an effort to control motor dysfunction and orthostatic near syncope. However every time they come down on his Parkinson's drugs his motor dysfunction gets worse. Every time they titrate down on his Florinef, his orthostatic syncope gets worse. Most recently they have titrated down the ropinirole and carbidopa levodopa. And titrated up the Florinef. - Past Medical History Cardiovascular: reports: Hypertension, Other Respiratory: reports: Sleep apnea. denies: CPAP use Neuro: reports: Parkinson's (s/p STN DBS R 2013, L 2014,) Endocrine/Autoimmune: reports: None GI: reports: GERD : reports: Benign prostate hypertrophy HEENT: reports: Other (vocal cord surgery for lesion) Psych: reports: None Musculoskeletal: reports: None Derm: reports: None MRSA Hx?: No - Past Surgical History General: reports: Cholecystectomy (Open.) Derm: reports: Other - CONSULTS | PROCEDURES Procedures: 1. Head CT with angiogram showing no acute intracranial hemorrhage. No infarct identified. No large vessel occlusion. Hypoplastic left vertebral artery. Repeat head CT done the next morning for follow-up of stroke was also without intracranial hemorrhage, infarct. 2. Neck CT angiogram with no large vessel occlusion, no critical stenosis, severely hypoplastic vertebral artery. 3. Chest x-ray without any acute abnormality. - HOSPITAL COURSE Hospital Course: Patient was observed overnight on telemetry. We were looking for any signs of ND, stroke, or other causes of orthostatic syncope not previously present as already stated. Telemetry was negative for arrhythmia. There is no peak T waves or flattened T waves with this hypokalemia. Potassium was supplemented IV and will be supplemented orally sent home. We are asking him to get his potassium repeated in the next week. And we have sent him home with a lab slip request. We are asking that his primary care provider, Dr. Ocasio, follow-up on that. He is to see a new neurologist since his neurologist is retiring. He will be seeing Suzanna Dorsey MD [facility] neurology. Advance care planning conversation was held with the patient and the . is stating that they will continue to do "what we are doing now" to maintain his status for as long as possible. The patient was starting to explore options as to when he would stop doing these things, and what would happen as he got worse. His states that they will face that when they get to it and was not interested in discussing options at this time. Physical therapy evaluated the patient. They found to be slightly more deconditioned than the last time they saw him which was 6 weeks ago. They feel that he would benefit from outpatient physical therapy resumption.As such that was ordered at discharge. At discharge temperature was 36.0. Pulse 66. Orthostatic blood pressure showed a supine blood pressure of 157/82, sitting blood pressure 142/83, standing blood pressure 108/57. There is not much pulse change for this and he is 64, 66, and 70 respectively. Respirations are 20. He is 95% on room air. He has the bradykinesia of Parkinson's with a flat affect. Cogwheel rigidity of the upper and lower extremities. No pin rolling tremor. He has bilateral skull bumps from where neurostimulator are in place and the battery pack in his left upper chest. He is easy emotional lability and will spontaneously break into tears intermittently as we discussed the future and what they could possibly bring for him. His is very supportive. Constantly reassuring him that he is not going anywhere soon. She is hoping that he lives 10, maybe 20 years more with his current status. Neck is supple. Lungs are clear with diminished breath sounds. Very slow, shallow, unlabored respiration. The abdomen has firm abdominal musculature, but is nontender, normal bowel sounds. Patient is discharged in stable condition. Because of his risk of falls, I have asked her to make sure she is always with him when he gets up to ambulate. With her is to get up to go to the bathroom, get a glass of water, or just simply to walk into the living room to watch TV, she needs to be standby assist. - ALLERGIES Allergies/Adverse Reactions: Allergies Allergy/AdvReac Type Severity Reaction Status Date / Time No Known Drug Allergies Allergy Verified 06/19/21 14:32 - MEDICATIONS Home Medications: Ambulatory Orders Medication Instructions Recorded Confirmed Ropinirole HCl [Requip Xl] 2 mg PO BID 09/05/13 06/19/21 Gabapentin 200 mg PO TID 08/17/20 06/19/21 Carbidopa/Levodopa 25/100 [Sinemet 1.5 each PO TID 12/11/20 06/19/21 25 mg/100 mg] metFORMIN [Glucophage] 1,000 mg PO DAILY 12/11/20 06/19/21 Droxidopa 100 mg PO QPM 06/19/21 06/19/21 Droxidopa 200 mg PO 0700,1600 06/19/21 06/19/21 Fludrocortisone [Florinef] 0.2 mg PO TID 06/19/21 06/19/21 Potassium Chloride 20 meq PO BID #14 tab 06/20/21 - LABS Result Diagrams: 06/19/21 14:30 06/20/21 06:20
[2021-06-20 16:05] VITALS: BP 165/82
--- NOTE | 2021-06-20 19:47 | ADVANCE CARE PLANNING NOTE ---
Advance Care Planning - Planning Encounter Date: 06/20/21 Time: 13:00 Purpose: Establish goals of care with and patient Parties in Attendance: , patient, hospitalist Decisional Capacity of the Patient: While the patient is alert, oriented, able to participate in the conversation, he has cognitive deficits, emotional lability, and difficult processing and multitasking. is his DURABLE POWER OF HOUSE WRECKER, power of sports attorney and advocates for him and will ask his opinion throughout the conversation - Diagnosis for Encounter (3) Parkinsons disease Summary: His symptoms started in 2005 with right upper extremity tremor. 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 Tingling of his feet that have been going on for years. Florinef started July 2020. Gabapentin also started at that time. Ropinirole has been decreased, gabapentin has been continued, and has been slowly titrated down on his Florinef. With his neurology notes he has descriptions of near syncope several times a week. - Encounter Subjective/Patient's Story: Although the understands him to have near syncope several times a week, She feels that somehow this current syncopal episode is more severe than usual. This is the first time he is lost complete consciousness and was unconscious for so long. She is a very strong advocate and with a positive attitude toward his disease and prognosis. She says that she is aware of his prognosis. I asked her to please describe what she understands of his future. She states that she is well aware that he will eventually deteriorate. That he will get worse from his current status. But she wants to fiercely maintain him at his current status and use every modality possible to maintain him. On the one hand she describes his Parkinson's drugs being incredibly sedating, but if they are stopped completely, his tremors come back. They have been titrating up and down on his Florinef for the blood pressure issues. She asked if there is any research available or new medications available for Parkinson's disease. She does not want to discuss future planning. She states that she has been to him for a very long time, and she plans on taking care of him without any help. She says that when they do need help, she will address that at that time but does not want to discuss it now. He has been following this conversation. He has intermittent yawning, and manifests fatigue and sleepiness. He also is manifesting intermittent spontaneous crying. In the past has been on antidepressants. She asked if there is any way to control his depression. We speak about situational issues. The grief that comes with loss of independence and functionality may not necessarily be treated very well by antidepressants. He states that he wants to know what to do for the future. I explained to him that his states that she will address issues as they come up. He says that he can feel himself have a "Pea brain". That he has memory issues. And this upsets him. Objective/Medical Story: 70-year-old white male who has Parkinson's disease and lives with his . His primary care provider is Titi Ocasio and is followed by Jono Lopez for neurology. He has a brain stimulator. When the brain stimulator is active, he will develop a speech change where he speaks out of the left side of his mouth. Today he was in his usual state of health. There is been no change in medications, no change in diet. There has been no fever, chills. No change in mental status. The heard a loud fall and she found him in the bathroom. He was unresponsive, not speaking, not opening his eyes and they called EMS. Because of a slight left facial droop he was brought in as a code stroke. He remained aphasic and EMS, during triage. He did not start to speak again until he came back from the CT scanner that was done for a code stroke. He CT angiogram shows a hypoplastic, congenital left vertebral artery. But no other findings that indicate a stroke.Of note, when I reviewed his outpatient medical chart he has orthostatic hypotension and has been on increasing doses of midodrine. The neurologist has prescribed thigh-high compression stockings but the patient and his were not able to get the monitor as they are too tight. He is already had several falls. One fall resulted in 2 episodes of gross hematuria in March. ROBERT Almeida spoke to neurology. They feel that the patient's syncope may be due to potassium. He is 2.5. Orthostatic vitals were not done in the ER. He is not acutely anemic. There is no fever, white cell count. Neurology would like him to have a repeat scan tomorrow after an overnight stay. As such the patient is placed in observation. His symptoms started in 2005 with right upper extremity tremor. 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 Tingling of his feet that have been going on for years. Florinef started July 2020. Gabapentin also started at that time. Ropinirole has been decreased, gabapentin has been continued, and has been slowly titrated down on his Florinef. With his neurology notes he has descriptions of near syncope several times a week. Physical therapy saw him today. They are very comfortable with this gentleman taking care of him many times in the past. His issues of near syncope or syncope are not new they state. These are chronic problems. He may be slightly more deconditioned than he was 6 weeks ago when they last saw him. They are asking that he be referred for outpatient physical therapy. CT of the head is negative. He has not had a stroke. He is not having arrhythmias. He is not having an AL. Goals of Care: 1. would like to maintain him at his current status if not improve the current status through physical therapy, medications, and any possible research treatment options available. 2. Full CODE STATUS 3. Consider future discussions with neurology or primary care provider for advance care planning when she is ready. The patient seems to be manifesting an interest now but she would like to defer. Plan: Follow-up with his primary care provider, and his neurologist. They share with me that his former neurologist, Dennis Lopez, has left that office and [facility] Code Status: Attempt Resuscitation Time spent on advance care plannin minutes
== END 2021-06-20 16:20 | disposition home or self-care (01) ==
LOC: EDUNIT# → ED 14:08 → MS2 15:57
PROVIDERS: ADMIT Specialist; ATTEND Specialist
DX: I95.1 Orthostatic hypotension (principal); E87.6 Hypokalemia; I10 Essential (primary) hypertension; G20 Parkinson's disease; Z91.81 History of falling; Z96.89 Presence of other specified functional implants; G47.30 Sleep apnea, unspecified; K21.9 Gastro-esophageal reflux disease without esophagitis; N40.1 Benign prostatic hyperplasia with lower urinary tract symptoms; R35.0 Frequency of micturition; R39.15 Urgency of urination; R53.81 Other malaise; Z20.822 Contact with and (suspected) exposure to COVID-19; Z87.891 Personal history of nicotine dependence; Z79.899 Other long term (current) drug therapy; Z79.84 Long term (current) use of oral hypoglycemic drugs
CPT/HCPCS: 36415; 70450; 70496; 70498; 71045; 80048; 80053; 81003; 83690; 83735; 84132; 84484; 85025; 85610; 87631; 93005; 96365; 96366; 96367; 96368; 97116; 97161; 99281; 99285; A9270; G0378; Q9967; 0202U; 81001; 87086

== ENCOUNTER 2021-07-08 09:40 | Outpatient (CLI) | payer MEDICARE, OTHER ==
[2021-07-08 12:27] LABS: CALCIUM 9.7 mg/dL (8.5-10.3); POTASSIUM 3.2 mmol/L (3.5-5.0)
== END 2021-07-08 23:59 | disposition home or self-care (01) ==
LOC: LAB.WCP 09:40
PROVIDERS: ATTEND Internal Medicine
DX: E11.42 Type 2 diabetes mellitus with diabetic polyneuropathy (principal); E11.22 Type 2 diabetes mellitus with diabetic chronic kidney disease; N18.2 Chronic kidney disease, stage 2 (mild)
CPT/HCPCS: 36415; 80048

== ENCOUNTER 2021-07-20 11:15 | Outpatient (CLI) | payer MEDICARE, OTHER ==
[2021-07-20 18:09] LABS: CALCIUM 9.7 mg/dL (8.5-10.3); CREATININE 1.1 mg/dL (0.6-1.2); POTASSIUM 3.7 mmol/L (3.5-5.0)
== END 2021-07-20 11:16 | disposition home or self-care (01) ==
LOC: LAB.N 11:15
PROVIDERS: ATTEND Internal Medicine
DX: E11.42 Type 2 diabetes mellitus with diabetic polyneuropathy (principal); E11.22 Type 2 diabetes mellitus with diabetic chronic kidney disease; N18.2 Chronic kidney disease, stage 2 (mild)
CPT/HCPCS: 36415; 80048

== ENCOUNTER 2021-08-21 11:29 | Outpatient (CLI) | payer MEDICARE, OTHER ==
--- NOTE | 2021-08-21 17:22 | XRAY Report ---
PROCEDURE: Elbow 3 View RT INDICATIONS: RIGHT ELBOW JOINT PAIN TECHNIQUE: 3 views of the elbow were acquired. COMPARISON: None FINDINGS: Bones: No fractures or dislocations. No suspicious bony lesions. Age-appropriate degenerative conklin ges are seen. Soft tissues: No elbow joint effusion. No suspicious soft tissue calcifications. IMPRESSION: Age-appropriate, degenerative changes are seen, without an acute abnormality identified. If it would be helpful for clinical management decision making, please consider a dedicated, schedule d elbow MRI for further evaluation (assuming that there is no contraindication). Reviewed by: Deng Fuentes MD on 08/21/2021 4:21 PM AMIRA Approved by: Deng Fuentes MD on 08/21/2021 4:21 PM AMIRA Station ID: [id number]
== END 2021-08-21 23:59 | disposition home or self-care (01) ==
LOC: DI.N 11:29
PROVIDERS: ATTEND Family Medicine
DX: M19.021 Primary osteoarthritis, right elbow (principal)

== ENCOUNTER 2021-09-24 09:57 | Outpatient (CLI) | payer MEDICARE, OTHER ==
[2021-09-24 12:44] LABS: CALCIUM 8.9 mg/dL (8.5-10.3); CREATININE 1.1 mg/dL (0.6-1.2); POTASSIUM 2.7 mmol/L (3.5-5.0)
[2021-09-24 12:56] LABS: ESTIMATED AVERAGE GLUCOSE 151 mg/dL (70-100); HEMOGLOBIN A1c% 6.9 % (4.27-6.07)
== END 2021-09-24 23:59 | disposition home or self-care (01) ==
LOC: LAB.WCP 09:57
PROVIDERS: ATTEND Internal Medicine
DX: E11.42 Type 2 diabetes mellitus with diabetic polyneuropathy (principal)
CPT/HCPCS: 36415; 80048; 83036

== ENCOUNTER 2021-09-28 08:00 | Outpatient (CLI) | payer MEDICARE, OTHER ==
[2021-09-28 19:28] LABS: FECAL OCCULT BLOOD (FIT) NEGATIVE (NEGATIVE)
== END 2021-09-28 23:59 | disposition home or self-care (01) ==
LOC: LAB.WCP 08:00
PROVIDERS: ATTEND Internal Medicine
DX: Z12.11 Encounter for screening for malignant neoplasm of colon (principal)
CPT/HCPCS: 82274

== ENCOUNTER 2021-10-14 08:58 | Outpatient (CLI) | payer MEDICARE, OTHER ==
[2021-10-14 09:25] LABS: CALCIUM 9.2 mg/dL (8.5-10.3); CREATININE 1.1 mg/dL (0.6-1.2); POTASSIUM 3.5 mmol/L (3.5-5.0)
== END 2021-10-14 08:59 | disposition home or self-care (01) ==
LOC: LAB 08:58
PROVIDERS: ATTEND Internal Medicine
DX: E87.6 Hypokalemia (principal)
CPT/HCPCS: 36415; 80048

== ENCOUNTER 2021-10-26 08:00 | Outpatient (CLI) | payer MEDICARE, OTHER | END 2021-10-26 23:59 | disposition home or self-care (01) | LOC: LAB.N 08:00 | PROVIDERS: ATTEND Nurse Practitioner | DX: B37.0 Candidal stomatitis (principal) | CPT/HCPCS: 87070 ==

== ENCOUNTER 2021-11-09 02:37 | Emergency (ER) | payer MEDICARE, OTHER ==
--- NOTE | 2021-11-09 02:50 | ED Physician Documentation ---
PD HPI HEAD INJURY - Stated complaint Stated Complaint: GLF HEAD LAC - Chief complaint Chief Complaint: Laceration - History obtained from History obtained from: Patient - History of Present Illness Mechanism of head injury: Fell Where head injury occurred: Home Timing - onset: Enter time (01:00), Today Pain level now: 1 Location of injury: Back Associated symptoms: No: LOC, AMS, Amnesia, Neck pain Contributing factors: No: Anticoagulated - Additional information Additional information: approximately 1 AM, patient lost balance when walking with walker, fell and struck back of his head on the floor, sustaining laceration. Denies LOC Review of Systems GI: denies: Nausea, Vomiting Skin: reports: Laceration (s) Musculoskeletal: reports: Reviewed and negative. denies: Neck pain, Back pain Neurologic: reports: Head injury. denies: Focal weakness, Numbness, Headache, LOC PD PAST MEDICAL HISTORY - Past Medical History Cardiovascular: Hypertension, Other Respiratory: Sleep apnea Neuro: Parkinson's Endocrine/Autoimmune: None GI: GERD : Benign prostate hypertrophy HEENT: Other (vocal cord surgery for lesion) Psych: None Musculoskeletal: None Derm: None - Past Surgical History Past Surgical History: Yes General: Cholecystectomy Derm: Other - Present Medications Home Medications: Ambulatory Orders Medication Instructions Recorded Confirmed Ropinirole HCl [Requip Xl] 2 mg PO BID 09/05/13 06/19/21 Gabapentin 200 mg PO TID 08/17/20 06/19/21 Carbidopa/Levodopa 25/100 [Sinemet 1.5 each PO TID 12/11/20 06/19/21 25 mg/100 mg] metFORMIN [Glucophage] 1,000 mg PO DAILY 12/11/20 06/19/21 Droxidopa 100 mg PO QPM 06/19/21 06/19/21 Droxidopa 200 mg PO 0700,1600 06/19/21 06/19/21 Fludrocortisone [Florinef] 0.2 mg PO TID 06/19/21 06/19/21 Potassium Chloride 20 meq PO BID #14 tab 06/20/21 - Allergies Allergies/Adverse Reactions: Allergies Allergy/AdvReac Type Severity Reaction Status Date / Time No Known Drug Allergies Allergy Verified 11/09/21 02:51 - Social History Does the pt smoke?: No Smoking Status: Never smoker Does the pt drink ETOH?: Yes Does the pt have substance abuse?: No - Immunizations Immunizations are current?: Yes - POLST Patient has POLST: No POLST Status: Full Code PD ED PE NORMAL - Vitals Vital signs reviewed: Yes - General General: Alert and oriented X 3, No acute distress, Well developed/nourished - HEENT HEENT: PERRL, EOMI - Neck Neck: No bony TTP PD ED PE EXPANDED - HEENT HEENT Visual: 1 - laceration (3 cm length laceration) Results - Vitals Vitals: Oxygen O2 Source Room air Procedures - Laceration (location) Scalp Length in cm: 3 Wound type: Linear, Into subcut fat, Clean Neurovascular status: Sensory intact, Motor intact, Vascular intact Anesthesia: Lidocaine 1% Wound preparation: Chlorhexadine, Irrigated copiously NS Skin layer closure: [place] Other: Patient tolerated well, No complications, Neurovascular intact PD MEDICAL DECISION MAKING - ED course Complexity details: considered differential, d/w patient Departure - Departure Disposition: 01 Home, Self Care Clinical Impression: Laceration Condition: Good Instructions: ED Laceration Scalp Stitch Or Stap Follow-Up: Titi Ocasio MD [Primary Care Provider] - Comments: Follow up with your primary care provider in 7-8 days for removal of the shanti. Discharge Date/Time: 11/09/21 03:50
[2021-11-09] MEDS ORDERED: BUFFERED LIDOCAINE 10 ML SYRINGE SUBQ STA (02:55)
[2021-11-09] MEDS ORDERED: LIDOCAINE 1% 2 ML VIAL SUBQ STA (03:01)
[2021-11-09] MEDS ORDERED: BACITRACIN ZINC OINT 1 PACKET TOP STA (03:29)
[2021-11-09 04:18] VITALS: BP 137/64
== END 2021-11-09 03:50 | disposition home or self-care (01) ==
LOC: ED 02:37
DX: S01.01XA Laceration without foreign body of scalp, initial encounter (principal); W01.0XXA Fall on same level from slipping, tripping and stumbling without subsequent striking against object, initial encounter; Y93.01 Activity, walking, marching and hiking; Y92.002 Bathroom of unspecified non-institutional (private) residence as the place of occurrence of the external cause; I10 Essential (primary) hypertension; G20 Parkinson's disease
CPT/HCPCS: 12002; 99281

== ENCOUNTER 2021-12-27 08:00 | Outpatient (CLI) | payer MEDICARE, OTHER ==
[2021-12-27 18:29] LABS: ALBUMIN/GLOBULIN RATIO 1.3 (1.0-2.2); ALKALINE PHOSPHATASE 45 IU/L (42-121); ALT ALANINE AMINOTRANSFERASE < 10 IU/L (10-60); AST ASPARTATE AMINOTRANSFERASE 25 IU/L (10-42); BILIRUBIN,TOTAL 0.8 mg/dL (0.2-1.0); BUN - BLOOD UREA NITROGEN 13 mg/dL (6-20); CALCIUM 8.6 mg/dL (8.5-10.3); CARBON DIOXIDE - CO2 36 mmol/L (21-32); CHLORIDE 93 mmol/L (101-111); CHOL/HDL RATIO 3.6 (<5.0); CHOLESTEROL 153 mg/dL; CREATININE 1.1 mg/dL (0.6-1.2); GFR - MDRD 66 (>89); GLUCOSE 137 mg/dL (70-100); HDL CHOLESTEROL 42 mg/dL; LDL CHOLESTEROL,CALCULATED 96 mg/dL; LDL/HDL RATIO 2.3 (<3.6); SODIUM 141 mmol/L (135-145); TRIGLYCERIDES 74 mg/dL; VLDL CHOLESTEROL 15 mg/dL
[2021-12-27 18:34] LABS: ESTIMATED AVERAGE GLUCOSE 131 mg/dL (70-100); HEMOGLOBIN A1c% 6.2 % (4.27-6.07)
[2021-12-27 18:35] LABS: POTASSIUM 2.5 mmol/L (3.5-5.0)
== END 2021-12-27 23:59 | disposition home or self-care (01) ==
LOC: LAB.WCP 08:00
PROVIDERS: ATTEND Internal Medicine
DX: E11.42 Type 2 diabetes mellitus with diabetic polyneuropathy (principal)
CPT/HCPCS: 36415; 80053; 80061; 83036; 83721

== ENCOUNTER 2022-01-06 10:49 | Outpatient (CLI) | payer MEDICARE, OTHER ==
[2022-01-06 17:58] LABS: CALCIUM 8.9 mg/dL (8.5-10.3); MAGNESIUM 1.8 mg/dL (1.7-2.8); POTASSIUM 3.2 mmol/L (3.5-5.0)
== END 2022-01-06 10:50 | disposition home or self-care (01) ==
LOC: LAB.N 10:49
PROVIDERS: ATTEND Family Medicine
DX: E83.42 Hypomagnesemia (principal); E87.6 Hypokalemia
CPT/HCPCS: 36415; 80048; 83735

== ENCOUNTER 2022-03-25 13:23 | Outpatient (CLI) | payer MEDICARE, OTHER ==
--- NOTE | 2022-03-25 14:45 | XRAY Report ---
PROCEDURE: Wrist 3 View LT INDICATIONS: HAND JOINT PAIN, LEFT TECHNIQUE: 3 views of the wrist were acquired. COMPARISON: None FINDINGS: Bones: No joint space narrowing or degenerative changes. No fractures or dislocations. No suspiciou s bony lesions. Soft tissues: No suspicious soft tissue calcifications. IMPRESSION: No acute finding or significant degenerative change. Reviewed by: Smith Mcwilliams MD on 03/25/2022 2:44 PM PDT Approved by: Smith Mcwilliams MD on 03/25/2022 2:44 PM PDT Station ID: [id number]
--- NOTE | 2022-03-25 17:54 | XRAY Report ---
PROCEDURE: Hand 3 View LT INDICATIONS: HAND JOINT PAIN, LEFT TECHNIQUE: 3 views of the hand(s) acquired. COMPARISON: None FINDINGS: Bones: No fractures or dislocations. No suspicious bony lesions. Soft tissues: No suspicious soft tissue calcifications. IMPRESSION: Unremarkable left hand films. No acute bony abnormality. No significant arthritic change noted. Reviewed by: Guy Bravo MD on 03/25/2022 5:53 PM PDT Approved by: Guy Bravo MD on 03/25/2022 5:53 PM PDT Station ID: [id number]
== END 2022-03-25 13:24 | disposition home or self-care (01) ==
LOC: DI.N 13:23
PROVIDERS: ATTEND Internal Medicine
DX: M79.642 Pain in left hand (principal)

== ENCOUNTER 2022-04-13 15:43 | Emergency (ER) | payer MEDICARE, OTHER ==
--- OUTSIDE RECORDS SUMMARY | 2022-04-13 16:01 | EXTERNAL MEDICAL SUMMARY RPT | Continuity of Care Document ---
:1950 Author Organization [facility] Address [address] [place] [address] Phone Care Team Providers Name Role Phone Shaun Unavailable Unavailable Ninfa Unavailable Unavailable Zac Unavailable Unavailable Shaun Unavailable Unavailable Allergies No information. Encounters No information. Medications date description facility 20220201 24 HR Metformin hydrochloride 500 MG Ex tended [facility] Tablet 20220201 Fludrocortisone 0.1 MG [facility] 20220201 gabapentin 100 MG Oral Capsule [facility] 20220201 Carbidopa 25 MG / Levodopa 100 MG Oral Tablet [facility] 20220201 24 HR Metformin hydrochloride 500 MG Ex tended [facility] Tablet [id number] Fludrocortisone 0.1 MG Oral [facility] [id number] gabapentin 100 MG Oral Capsule [facility] 20220201 Carbidopa 25 MG / Levodopa 100 MG Oral Tablet [facility] Problems date description facility 20220214 Contact with and (suspected) exposure [address] [id number] Contact with and (suspected) exposure [address] Procedures date description facility 20220215 [facility] 20220214 [facility] 20220201 [facility] 20220201 [facility] [id number] [facility] [id number] [facility] [id number] [facility] Results No information. Vital Signs date measurement value source 20220201 weight_standard 164.99 lb 20220201 weight_metric 74.84 kg 20220201 temperature_standard 97.7 F 20220201 temperature_metric 36.5 C 20220201 respiration_rate 15 /min 20220201 height_standard 66 in 20220201 height_metric 167.64 cm 20220201 heart_rate 56 /min 20220201 BP_systolic 179 mm[Hg] 20220201 BP_diastolic 97 mm[Hg] 20220201 BMI 26.6 kg/m2 20220201 weight_standard 164.99 lb 20220201 weight_metric 74.84 kg 20220201 temperature_standard 97.7 F 20220201 temperature_metric 36.5 C 20220201 respiration_rate 15 /min 20220201 height_standard 66 in 20220201 height_metric 167.64 cm 20220201 heart_rate 56 /min 20220201 BP_systolic 179 mm[Hg] 20220201 BP_diastolic 97 mm[Hg] 20220201 BMI 26.6 kg/m2 20220215 weight_standard 72.58 lb 20220215 weight_metric 32.92 kg 20220215 temperature_standard 97.1 F 20220215 temperature_metric 36.17 C 20220215 respiration_rate 18 /min 20220215 height_standard 66 in 20220215 height_metric 167.64 cm 20220215 heart_rate 56 /min 20220215 BP_systolic 180 mm[Hg] 20220215 BP_diastolic 79 mm[Hg] 20220215 BMI 25.8 kg/m2
--- NOTE | 2022-04-13 16:25 | ED Physician Documentation ---
PD HPI HEAD INJURY - Stated complaint Stated Complaint: fall,head injury - Chief complaint Chief Complaint: Trauma Hd/Nk - History obtained from History obtained from: Patient - History of Present Illness Mechanism of head injury: Fell Where head injury occurred: Home Timing - onset: Today (He and his state he lost balance and fell this morning striking his right forehead. Laceration to the area and seen at walk-in clinic with suturing. Normal mentation at the time. Has since had increased headache, slightly off balance and feeling tired. No anticoagulants.) Location of injury: Right, Front Quality of pain: Aching (frontal headache) Associated symptoms: No: LOC, AMS, Nausea / vomiting Symptoms worsen with: Palpation Contributing factors: No: Anticoagulated, Intoxicated Similar symptoms before: Has not had sx before Recently seen: Clinic (Walk-in clinic this morning with normal neuro interaction and had a laceration sutured on the right eyebrow.) Review of Systems Constitutional: denies: Fever, Chills Nose: denies: Rhinorrhea / runny nose, Congestion Throat: denies: Sore throat Respiratory: denies: Cough GI: denies: Nausea, Vomiting, Diarrhea Neurologic: reports: Altered mental status (sluggish to answer questions but still appropriate and follows commands.), Headache (mainly right side). denies: Focal weakness, Numbness PD PAST MEDICAL HISTORY - Past Medical History Cardiovascular: Hypertension, Other Respiratory: Sleep apnea Neuro: Parkinson's Endocrine/Autoimmune: None GI: GERD : Benign prostate hypertrophy HEENT: Other Psych: None Musculoskeletal: None Derm: None - Past Surgical History Past Surgical History: Yes General: Cholecystectomy Derm: Other - Present Medications Home Medications: Ambulatory Orders Medication Instructions Recorded Confirmed Ropinirole HCl [Requip Xl] 2 mg PO BID 09/05/13 04/13/22 Gabapentin 200 mg PO TID 08/17/20 06/19/21 Carbidopa/Levodopa 25/100 [Sinemet 1.5 each PO TID 12/11/20 04/13/22 25 mg/100 mg] metFORMIN [Glucophage] 1,000 mg PO DAILY 12/11/20 06/19/21 Droxidopa 100 mg PO QPM 06/19/21 04/13/22 Droxidopa 200 mg PO 0700,1600 06/19/21 06/19/21 Fludrocortisone [Florinef] 0.1 mg PO TID 06/19/21 04/13/22 Potassium Chloride 20 meq PO BID #14 tab 06/20/21 - Allergies Allergies/Adverse Reactions: Allergies Allergy/AdvReac Type Severity Reaction Status Date / Time No Known Drug Allergies Allergy Verified 04/13/22 15:52 - Social History Does the pt smoke?: No Smoking Status: Never smoker Does the pt drink ETOH?: Yes Does the pt have substance abuse?: No - Immunizations Immunizations are current?: Yes - POLST Patient has POLST: No POLST Status: Full Code PD ED PE NORMAL - Vitals Vital signs reviewed: Yes - General General: Alert and oriented X 3 (but is sluggish to answer and seems slightly somnolent. ), No acute distress, Well developed/nourished - HEENT HEENT: PERRL, EOMI, Other (Sutures in place to right eyebrow. Some blood on the bandaging. small adjacent lac 0.5 cm not needing suturing. ) - Neck Neck: Supple, no meningeal sign, No bony TTP, No adenopathy - Cardiac Cardiac: RRR, No murmur - Respiratory Respiratory: Clear bilaterally, Other (no chestwall tenderness. 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 No: Alert and oriented X 3 (alert, sluggish to answer and confused on time. ) Eye Opening: Spontaneous Motor: Obeys Commands Verbal: Confused GCS Score: 14 - Psych Psych: Normal mood Results - Vitals Vitals: Vital Signs - 24 hr 04/13/22 04/13/22 04/13/22 15:46 17:51 18:55 Temperature Heart Rate 73 72 64 Respiratory 14 15 17 Rate Blood Pressure 124/61 179/96 H 142/94 H O2 Saturation 98 99 04/13/22 04/13/22 04/13/22 21:01 21:57 22:30 Temperature 36.6 C Heart Rate 61 65 72 Respiratory 18 17 18 Rate Blood Pressure O2 Saturation 100 96 Oxygen O2 Source Room air - Labs Labs: Laboratory Tests 04/13/22 04/13/22 04/13/22 17:22 17:22 17:22 WBC 10.5 RBC 4.29 L Hgb 13.1 L Hct 38.1 L MCV 88.8 MCH 30.5 MCHC 34.4 RDW 13.2 Plt Count 201 MPV 11.5 H Neut # (Auto) 8.1 H Lymph # (Auto) 1.3 L Hays # (Auto) 0.7 Eos # (Auto) 0.3 Baso # (Auto) 0.1 Absolute Nucleated RBC 0.00 Nucleated RBC % 0.0 PT 11.9 INR 1.1 Sodium Potassium Chloride Carbon Dioxide Anion Gap BUN Creatinine Estimated GFR (MDRD) Glucose Calcium Magnesium Total Bilirubin AST ALT Alkaline Phosphatase Total Protein Albumin Globulin Albumin/Globulin Ratio Lipase SARS-CoV-2 (PCR) NOT DETECTED 04/13/22 17:42 WBC RBC Hgb Hct MCV MCH MCHC RDW Plt Count MPV Neut # (Auto) Lymph # (Auto) Hays # (Auto) Eos # (Auto) Baso # (Auto) Absolute Nucleated RBC Nucleated RBC % PT INR Sodium 141 Potassium 3.4 L Chloride 103 Carbon Dioxide 28 Anion Gap 10.0 BUN 16 Creatinine 0.9 Estimated GFR (MDRD) 83 L Glucose 159 H Calcium 9.3 Magnesium 1.6 L Total Bilirubin 0.6 AST 20 ALT 10 Alkaline Phosphatase 53 Total Protein 7.2 Albumin 4.1 Globulin 3.1 Albumin/Globulin Ratio 1.3 Lipase 28 SARS-CoV-2 (PCR) - Rads (name of study) head CT Radiology: Prelim report reviewed (deep cortical stimulator in place. 8 mm width subdural hematoma right parietal. No midline shift. ), See rad report PD MEDICAL DECISION MAKING - ED course Complexity details: re-evaluated patient (The patient is remaining about the same. Follows commands. A little bit restless on the cart. Protocol from [facility] is subdural traumatic he has not an auto except if less than 10 mm. They will have me talk with neurosurgery.), considered differential (Fall with injury to the right forehead this morning with progressive concussive type symp toms through the day with some confusion and off balance. CT scan showing subdural on the right. Neurosurgical consult obtained at [facility].), d/w patient, d/w family (), d/w construction consultant (Dr. Titi Salcedo neurosurgery at [facility] directed repeat CT scan at at least 4 hours and then to push the images and call back to discuss images and patient's symptoms.) ED course: Recheck at this time, the patient is little bit fidgety in bed. He is still a little bit sluggish answering questions but eyes open and obeys commands. He does have Parkinson's and his medications at least 1 that he takes we do not have in stock. His is going home to get his home medicines to bring back so we can take them here. Patient and were advised on the timeline and treatment plan as it currently stands. Care discussed with Dr. Wall, ED Physician. Awaiting time for repeat CT scan and consult with neurosurgery. Departure - Departure Disposition: 01 Home, Self Care Clinical Impression: Fall from slip, trip, or stumble, Acute subdural hematoma, Head injury, Concussion Condition: Stable Record reviewed to determine appropriate education?: Yes Instructions: ED Hematoma Comments: Call Dr. Ocasio's office tomorrow, Titi will need a repeat CT scan in 1 week. Return for any new or worsening symptoms, particularly headache, any activity you would feel is abnormal for him or new concerns. Discharge Date/Time: 04/13/22 22:39
[2022-04-13] MEDS ORDERED: ACETAMINOPHEN 325 MG TABLET PO STA (16:34)
--- NOTE | 2022-04-13 17:13 | CT Report ---
PROCEDURE: HEAD WO INDICATIONS: fall, head injury; off balance/sleepy TECHNIQUE: Noncontrast 4.5 mm thick angled axial sections acquired from the foramen magnum to the vertex. For r adiation dose reduction, the following was used: automated exposure control, adjustment of mA and/or kV according to patient size. COMPARISON: 06/20/2021, 06/19/2021, 12/11/2020 FINDINGS: Image quality: Excellent. CSF spaces: Basal cisterns are patent. No extra-axial fluid collections. Ventricles are normal in size and shape. Brain: No midline shift. No intracranial masses or hemorrhage. Patel-white matter interface is norm al. Bilateral deep brain stimulators are seen, superior unremarkable and stable from the prior. Skull and face: Calvarium and visualized facial bones are intact, without suspicious lesions. Sinuses: Visualized sinuses and mastoids are clear. IMPRESSION: No intracranial hemorrhage is seen. No significant intracranial abnormality is seen. Stable deep brain stimulators. Reviewed by: Deng Fuentes MD on 04/13/2022 4:11 PM AMIR[facility] Approved by: Deng Fuentes MD on 04/13/2022 4:11 PM AMIRA Station ID: [id number]
[2022-04-13 17:51] LABS: BASOPHILS # (AUTO) 0.1 10^3/uL (0.0-0.1); BASOPHILS % (AUTO) 0.7 %; EOSINOPHILS # (AUTO) 0.3 10^3/uL (0.0-0.7); EOSINOPHILS % (AUTO) 3.2 %; HCT - HEMATOCRIT 38.1 % (42.0-52.0); HGB - HEMOGLOBIN 13.1 g/dL (14.0-18.0); LYMPHOCYTES # (AUTO) 1.3 10^3/uL (1.5-3.5); LYMPHOCYTES % (AUTO) 12.3 %; MEAN CORPUSCULAR HEMOGLOBIN 30.5 pg (27.0-31.0); MEAN CORPUSCULAR HGB CONC 34.4 g/dL (32.0-36.0); MEAN CORPUSCULAR VOLUME 88.8 fL (80.0-94.0); MEAN PLATELET VOLUME 11.5 fL (7.4-11.4); MONOCYTES # (AUTO) 0.7 10^3/uL (0.0-1.0); MONOCYTES % (AUTO) 6.5 %; NEUTROPHILS # (AUTO) 8.1 10^3/uL (1.5-6.6); NEUTROPHILS % (AUTO) 77.1 %; PLT - PLATELET COUNT 201 10^3/uL (130-450); RED BLOOD COUNT 4.29 10^6/uL (4.70-6.10); RED CELL DISTRIBUTION WIDTH 13.2 % (12.0-15.0); WHITE BLOOD COUNT 10.5 x10^3/uL (4.8-10.8)
[2022-04-13 18:04] LABS: ALBUMIN 4.1 g/dL (3.2-5.5); ALBUMIN/GLOBULIN RATIO 1.3 (1.0-2.2); BILIRUBIN,TOTAL 0.6 mg/dL (0.2-1.0); CALCIUM 9.3 mg/dL (8.5-10.3); CREATININE 0.9 mg/dL (0.6-1.2); MAGNESIUM 1.6 mg/dL (1.7-2.8); POTASSIUM 3.4 mmol/L (3.5-5.0); TOTAL PROTEIN 7.2 g/dL (6.7-8.2)
[2022-04-13 18:17] LABS: INR 1.1 (0.8-1.2); PT - PROTHROMBIN TIME 11.9 secs (9.9-12.6)
[2022-04-13 19:01] VITALS: BP 142/94
[2022-04-13] MEDS ORDERED: LORazepam 2 MG/ML VIAL IVP STA (21:33)
--- NOTE | 2022-04-13 22:07 | CT Report ---
PROCEDURE: HEAD WO INDICATIONS: reeval SDH TECHNIQUE: Noncontrast 4.5 mm thick angled axial sections acquired from the foramen magnum to the vertex. For r adiation dose reduction, the following was used: automated exposure control, adjustment of mA and/or kV according to patient size. COMPARISON: Head CT 04/13/2022 at 5:06 PM. FINDINGS: Image quality: There is streak artifact from patient's neurostimulator leads. CSF spaces: There is moderate cerebral volume loss with prominence of the ventricles and sulci. Basa l cisterns are patent. Brain: There is a dense acute right subdural hematoma redemonstrated along the right frontal and temp oral lobes which appears similar in overall size compared to the recent prior study. There is a small convex component extending into the sylvian fissure which measures up to 0.9 cm in depth which is si milar to minimally increased from the prior study on which it measured 0.8 cm. The hematoma demonstra mireya mild mass effect on the overlying right frontal and temporal lobes. No associated midline shift. The blackmon-white matter interface is grossly preserved. There are subcortical and periventricular white matter hypodensities consistent with mild chronic small vessel ischemic changes. There are bilateral deep neurostimulator the redemonstrated. Skull and face: Calvarium and visualized facial bones demonstrate no acute fractures. There are andreina ateral frontal austin holes associated with patient's neurostimulator leads. Sinuses: Visualized sinuses and mastoids are clear. IMPRESSION: 1. Right subdural hematoma appears similar in overall size compared to the recent prior study. A smal l convex component extending into the sylvian fissure is noted raising the possibility of a small epi dural hematoma. Recommend continued attention on follow-up. 2. Mild associated mass effect is redemonstrated on the right frontal and temporal lobes. No midline shift. 3. No acute fractures identified. Findings discussed Dr. Wall on 04/13/2022 at 9:55 PM. Reviewed by: Jean-Paul Burton MD on 04/13/2022 10:05 PM PDT Approved by: Jean-Paul Burton MD on 04/13/2022 10:05 PM PDT Station ID: [id number]
[2022-04-13] MEDS ORDERED: LORazepam 1 MG TABLET PO STA (22:24)
--- NOTE | 2022-04-13 22:26 | ED Physician Documentation ---
ED Addendum - Addendum Addendum: 04/13/22 22:25 71-year-old gentleman signed out to me by Dr. Jon after a fall with a head injury and a small subdural hematoma. The word from [facility] at that time from Dr. Titi Salcedo their attending neurosurgeon was to repeat a scan in about 4 hours. This was done and sent back to them and Dr. Salcedo looked at it again and felt it was stable and he could be managed as an outpatient. Supportive of over 50 years at the bedside feeling like he is at his baseline noting that he has parkinsonism and some dementia. He was a little agitated here and requested Ativan and this was given. She was given close return precautions and discussed the need for repeat CT in a week with PCP. Diagnosis: 1. Subdural hematoma Disposition: Discharge home Condition: Stable
== END 2022-04-13 22:39 | disposition home or self-care (01) ==
LOC: ED 15:43
DX: S01.81XA Laceration without foreign body of other part of head, initial encounter (principal); S06.5X9A Traumatic subdural hemorrhage with loss of consciousness of unspecified duration, initial encounter; S06.0X9A Concussion with loss of consciousness of unspecified duration, initial encounter; W18.39XA Other fall on same level, initial encounter; Y92.000 Kitchen of unspecified non-institutional (private) residence as the place of occurrence of the external cause; W22.8XXA Striking against or struck by other objects, initial encounter; G20 Parkinson's disease; Z20.822 Contact with and (suspected) exposure to COVID-19
CPT/HCPCS: 36415; 70450; 80053; 83690; 83735; 85025; 85610; 87635; 96374; 99284; A9270; J2060; J8499

== ENCOUNTER 2022-04-21 07:21 | Emergency (ER) | payer MEDICARE, OTHER ==
--- NOTE | 2022-04-21 07:37 | ED Physician Documentation ---
PD HPI HEAD INJURY - Stated complaint Stated Complaint: HEAD INJ FOLLOWUP - Additional information Additional information: Patient is a 71-year-old male presenting to the emergency department for reevaluation after recent diagnosis of subdural hematoma.Seen here 04/13 and diagnosed with Subacuteright-sided 8 mm subdural hematoma. Was monitored in the emergency department for repeat imaging and discharged for outpatient follow-up with instructions to either follow-up with primary care or return to the emergency department for repeat imaging in 1 week. Patient is accompanied by who is present at bedside. Patient has a past medical significant for type 2 diabetes, parkinsonism, dementia. Per 's history there is no increasing confusion, no reported headaches, or other focal or lateralizing neurologic symptoms. Review of Systems Ten Systems: 10 systems reviewed and negative PD PAST MEDICAL HISTORY - Past Medical History Cardiovascular: Hypertension, Other Respiratory: Sleep apnea Neuro: Parkinson's Endocrine/Autoimmune: None GI: GERD : Benign prostate hypertrophy HEENT: Other Psych: None Musculoskeletal: None Derm: None - Past Surgical History Past Surgical History: Yes General: Cholecystectomy Derm: Other - Present Medications Home Medications: Ambulatory Orders Medication Instructions Recorded Confirmed Ropinirole HCl [Requip Xl] 2 mg PO BID 09/05/13 04/13/22 Gabapentin 200 mg PO TID 08/17/20 06/19/21 Carbidopa/Levodopa 25/100 [Sinemet 1.5 each PO TID 12/11/20 04/13/22 25 mg/100 mg] metFORMIN [Glucophage] 1,000 mg PO DAILY 12/11/20 06/19/21 Droxidopa 100 mg PO QPM 06/19/21 04/13/22 Droxidopa 200 mg PO 0700,1600 06/19/21 06/19/21 Fludrocortisone [Florinef] 0.1 mg PO TID 06/19/21 04/13/22 Potassium Chloride 20 meq PO BID #14 tab 06/20/21 - Allergies Allergies/Adverse Reactions: Allergies Allergy/AdvReac Type Severity Reaction Status Date / Time No Known Drug Allergies Allergy Verified 04/21/22 07:37 - Social History Does the pt smoke?: No Smoking Status: Never smoker Does the pt drink ETOH?: Yes Does the pt have substance abuse?: No - Immunizations Immunizations are current?: Yes - POLST Patient has POLST: No POLST Status: Full Code PD ED PE NORMAL - Vitals Vital signs reviewed: Yes (wnl) - General General: No acute distress - Neck Neck: Supple, no meningeal sign - Respiratory Respiratory: No respiratory distress - Derm Derm: Normal color - 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 Afebrile, hemodynamically stable on arrival to the emergency department. Repeat imaging demonstrated the right SDH, now decreased in size. Will discharge for ongoing follow-up with primary care/neurosurgery as needed. Otherwise clear return pr ecautions and follow-up instructions given prior to discharge. Final clinical impression, subacute brain bleed Departure - Departure Disposition: 01 Home, Self Care Clinical Impression: Brain bleed Comments: Thank you for allowing us to care for you today at [facility]. The CT scan today redemonstrated the right sided bleed however it is smaller on today's imaging consistent with slow resorption and healing. Please continue to follow-up with your outpatient team as needed. If it anytime he have any new or worsening symptoms please not hesitate to return.
[2022-04-21 07:41] VITALS: BP 102/62
--- OUTSIDE RECORDS SUMMARY | 2022-04-21 07:43 | EXTERNAL MEDICAL SUMMARY RPT | Continuity of Care Document ---
:1950 Author Organization [facility] Address [address] [place] [address] Phone Care Team Providers Name Role Phone Shaun Unavailable Unavailable Zac Unavailable Unavailable Ninfa Unavailable Unavailable Shaun Unavailable Unavailable Allergies No information. Encounters No information. Medications date description facility 20220201 24 HR Metformin hydrochloride 500 MG Ex tended [facility] Tablet 20220201 Fludrocortisone 0.1 MG [facility] 20220201 gabapentin 100 MG Oral Capsule [facility] 20220201 Carbidopa 25 MG / Levodopa 100 MG Oral Tablet [facility] 20220201 24 HR Metformin hydrochloride 500 MG Ex tended [facility] Tablet [id number] Fludrocortisone 0.1 MG Oral [facility] [id number] gabapentin 100 MG Oral Capsule [facility] 20220201 Carbidopa 25 MG / Levodopa 100 MG Oral Tablet [facility] Problems date description facility 20220214 Contact with and (suspected) exposure [address] [id number] Contact with and (suspected) exposure [address] Procedures date description facility 20220215 [facility] 20220214 [facility] 20220201 [facility] 20220201 [facility] [id number] [facility] [id number] [facility] [id number] [facility] Results No information. Vital Signs date measurement [...]
--- NOTE | 2022-04-21 08:15 | CT Report ---
PROCEDURE: HEAD WO INDICATIONS: Repeat evaluation of rt SDH TECHNIQUE: Noncontrast 4.5 mm thick angled axial sections acquired from the foramen magnum to the vertex. For r adiation dose reduction, the following was used: automated exposure control, adjustment of mA and/or kV according to patient size. COMPARISON: CT 04/13/2022 FINDINGS: Image quality: Artifact from metallic deep brain stimulators are noted. The ventricular system and cortical sulci demonstrate atrophy, consistent for patient's stated age. B ilateral C3 neural stimulators are unchanged. There are areas of hypodensity in the periventricular a nd subcortical white matter. There is a persistent focus of extra-axial hyperdensity along the right frontal and temporal lobes. It has decreased in size measuring 1.5 x 0.7 cm compared to 2.9 x 1.0 cm in thickest dimension. There is no associated midline shift. No new areas of hemorrhage are identifi ed.. Brainstem is unremarkable. Globes are symmetrical. Sinuses are aerated. Osseous structures are intact. IMPRESSION: Persistent although decreased right frontotemporal extra-axial hemorrhage suspected to be subdural. H owever, as noted on prior exam, given shape and location, epidural hematoma could not be definitively excluded, although no adjacent fracture is identified Reviewed by: Leelee Sharma MD on 04/21/2022 8:14 AM PDT Approved by: Leelee Sharma MD on 04/21/2022 8:14 AM PDT Station ID: [id number]
== END 2022-04-21 08:34 | disposition home or self-care (01) ==
LOC: ED 07:21
DX: S06.5X0A Traumatic subdural hemorrhage without loss of consciousness, initial encounter (principal); X58.XXXA Exposure to other specified factors, initial encounter; G20 Parkinson's disease; F02.80 Dementia in other diseases classified elsewhere, unspecified severity, without behavioral disturbance, psychotic disturbance, mood disturbance, and anxiety; E11.9 Type 2 diabetes mellitus without complications; Z79.84 Long term (current) use of oral hypoglycemic drugs
CPT/HCPCS: 99281; 99284

== ENCOUNTER 2022-05-04 14:56 | Outpatient (CLI) | payer MEDICARE, OTHER ==
--- NOTE | 2022-05-04 16:49 | CT Report ---
PROCEDURE: HEAD WO INDICATIONS: SUBDURAL HEMATOMA TECHNIQUE: Noncontrast 4.5 mm thick angled axial sections acquired from the foramen magnum to the vertex. For r adiation dose reduction, the following was used: automated exposure control, adjustment of mA and/or kV according to patient size. COMPARISON: 04/21/2022, 04/13/2022.. FINDINGS: Image quality: Excellent. CSF spaces: Basal cisterns are patent. No extra-axial fluid collections. Ventricles are normal in size and shape. Brain: Bilateral thalamic neural stimulators. No midline shift. No intracranial masses or hemorrhag e. Patel-white matter interface is normal. Skull and face: Calvarium and visualized facial bones are intact, without suspicious lesions. Sinuses: Visualized sinuses and mastoids are clear. IMPRESSION: Right frontotemporal subdural hematoma has resolved in the interval since prior exams. N o acute intracranial disease process. Reviewed by: Tanisha Salvador MD, PhD on 05/04/2022 4:48 PM PDT Approved by: Tanisha Salvador MD, PhD on 05/04/2022 4:48 PM PDT Station ID: [id number]
== END 2022-05-04 14:57 | disposition home or self-care (01) ==
LOC: DI 14:56
PROVIDERS: ATTEND Neurological Surgery
DX: S06.5X9A Traumatic subdural hemorrhage with loss of consciousness of unspecified duration, initial encounter (principal)

== ENCOUNTER 2022-07-29 08:00 | Outpatient (CLI) | payer MEDICARE, OTHER ==
[2022-07-29 12:22] LABS: BILIRUBIN,URINE NEGATIVE (NEGATIVE); GLUCOSE, URINE (UA) 100 mg/dL (NEGATIVE); KETONES,URINE (UA) NEGATIVE (NEGATIVE); LEUKOCYTE ESTERASE, URINE NEGATIVE (NEGATIVE); NITRITE,URINE NEGATIVE (NEGATIVE); OCCULT BLOOD,URINE NEGATIVE (NEGATIVE); PROTEIN,URINE NEGATIVE (NEGATIVE); UROBILINOGEN,URINE 1 (NORMAL) E.U./dL (NORMAL)
[2022-07-29 12:34] LABS: BUN - BLOOD UREA NITROGEN 17 mg/dL (6-20); CALCIUM 9.2 mg/dL (8.5-10.3); CARBON DIOXIDE - CO2 28 mmol/L (21-32); CHLORIDE 101 mmol/L (101-111); CHOL/HDL RATIO 3.5 (<5.0); CHOLESTEROL 148 mg/dL; CREATININE 0.9 mg/dL (0.6-1.2); ESTIMATED AVERAGE GLUCOSE 146 mg/dL (70-100); GFR - MDRD 83 (>89); GLUCOSE 134 mg/dL (70-100); HDL CHOLESTEROL 42 mg/dL; HEMOGLOBIN A1c% 6.7 % (4.27-6.07); LDL CHOLESTEROL,CALCULATED 93 mg/dL; LDL/HDL RATIO 2.2 (<3.6); POTASSIUM 3.4 mmol/L (3.5-5.0); SODIUM 138 mmol/L (135-145); TRIGLYCERIDES 64 mg/dL; VLDL CHOLESTEROL 13 mg/dL
[2022-07-29 12:49] LABS: CLARITY,URINE CLEAR (CLEAR)
[2022-07-29 13:36] LABS: BACTERIA,URINE Few /HPF (None Seen); MUCUS,URINE Marked Strands; RBC,URINE 0-5 /HPF (0-5); SQUAMOUS EPITHELIAL CELL,UR FEW Squamous (<= Few); WBC,URINE 0-3 /HPF (0-3)
[2022-07-29 13:37] LABS: CASTS, URINE 6-10 Hyaline Casts /LPF
== END 2022-07-29 23:59 | disposition home or self-care (01) ==
LOC: LAB.N 08:00
PROVIDERS: ATTEND Internal Medicine
DX: E11.42 Type 2 diabetes mellitus with diabetic polyneuropathy (principal); R31.9 Hematuria, unspecified; E87.6 Hypokalemia
CPT/HCPCS: 36415; 80048; 80061; 81001; 81003; 83036; 83721; 87086

== ENCOUNTER 2022-09-13 08:37 | Emergency (ER) | payer MEDICARE, OTHER ==
--- NOTE | 2022-09-13 09:02 | ED Physician Documentation ---
PD HPI HEAD INJURY - Stated complaint Stated Complaint: FALL/HEAD PX - Chief complaint Chief Complaint: Trauma Hd/Nk - History obtained from History obtained from: Patient, Family (spouse) - History of Present Illness Mechanism of head injury: Fell (lost balance) Where head injury occurred: Home Timing - onset: Last night Location of injury: Back Associated symptoms: AMS (seems a bit more confused than usual, per .). No: LOC, Amnesia, Nausea / vomiting, Neck pain Recently seen: Clinic (seen at walk in and had scalp lac stapled. Referred to ER for head cT. Provider at walk in called ahead to inform of patient coming.) Review of Systems Musculoskeletal: denies: Neck pain, Back pain Neurologic: denies: Focal weakness, Numbness PD PAST MEDICAL HISTORY - Past Medical History Cardiovascular: Hypertension, Other Respiratory: Sleep apnea Neuro: Parkinson's Endocrine/Autoimmune: None GI: GERD : Benign prostate hypertrophy HEENT: Other Psych: None Musculoskeletal: None Derm: None - Past Surgical History Past Surgical History: Yes General: Cholecystectomy Derm: Other - Present Medications Home Medications: Ambulatory Orders Medication Instructions Recorded Confirmed Ropinirole HCl [Requip Xl] 2 mg PO BID 09/05/13 04/13/22 Gabapentin 200 mg PO TID 08/17/20 06/19/21 Carbidopa/Levodopa 25/100 [Sinemet 1.5 each PO TID 12/11/20 04/13/22 25 mg/100 mg] metFORMIN [Glucophage] 1,000 mg PO DAILY 12/11/20 06/19/21 Droxidopa 100 mg PO QPM 06/19/21 04/13/22 Droxidopa 200 mg PO 0700,1600 06/19/21 06/19/21 Fludrocortisone [Florinef] 0.1 mg PO TID 06/19/21 04/13/22 Potassium Chloride 20 meq PO BID #14 tab 06/20/21 - Allergies Allergies/Adverse Reactions: Allergies Allergy/AdvReac Type Severity Reaction Status Date / Time No Known Drug Allergies Allergy Verified 04/21/22 07:37 - Social History Does the pt smoke?: No Smoking Status: Never smoker Does the pt drink ETOH?: Yes Does the pt have substance abuse?: No - Immunizations Immunizations are current?: Yes - POLST Patient has POLST: No POLST Status: Full Code PD ED PE NORMAL - Vitals Vital signs reviewed: Yes - General General: Alert and oriented X 3, No acute distress, Well developed/nourished - HEENT HEENT: PERRL, EOMI, Other (scalp posteriorly with stapled wound appears in good approximation. No bleeding. Lac is not near brain stimulators that are frontal/temporal areas and feel intact. ) - Neck Neck: Supple, no meningeal sign, No bony TTP - Derm Derm: Normal color, Warm and dry - Neuro Neuro: Alert and oriented X 3, No motor deficit, No sensory deficit, Normal speech Results - Vitals Vitals: Oxygen O2 Source Room air - Rads (name of study) head CT Radiology: Prelim report reviewed (stimulators and leads in place. No ICH nor acute injury. ), See rad report Departure - Departure Disposition: 01 Home, Self Care Clinical Impression: Accidental fall Qualifiers: Encounter type: subsequent encounter Qualified Code(s): W19.XXXD - Unspecified fall, subsequent encounter Scalp laceration Qualifiers: Encounter type: subsequent encounter Qualified Code(s): S01.01XD - Laceration without foreign body of scalp, subsequent encounter Condition: Stable Record reviewed to determine appropriate education?: Yes Follow-Up: Titi Ocasio MD [Primary Care Provider] - Comments: The CT scan of your head is appropriately normal. No signs of dislodgment of your stimulators and no signs of fractures nor bleeding. For the scalp laceration, it is okay to wash and shower and cleanse the the wound at least once daily. Apply ointment once or twice daily to help keep it soft. Staple removal as directed by the walk-in clinic. Discharge Date/Time: 09/13/22 10:27
--- NOTE | 2022-09-13 09:50 | CT Report ---
PROCEDURE: HEAD WO INDICATIONS: fall, struck head. TECHNIQUE: Noncontrast 4.5 mm thick angled axial sections acquired from the foramen magnum to the vertex. For r adiation dose reduction, the following was used: automated exposure control, adjustment of mA and/or kV according to patient size. COMPARISON: Multiple prior head CT studies, most recent 05/04/2022 FINDINGS: Bilateral frontal craniotomies with bilateral thalamic neural stimulators in place. These create stre ak artifact which limits evaluation in the adjacent parenchyma. Within this limitation there is no ev idence of acute parenchymal hemorrhage. Right frontotemporal subdural hematoma seen on previous exami nations has resolved. No mass effect or midline shift. No evidence of significant vasogenic edema. Th e ventricular system and basilar cisterns are patent with no significant change in caliber from previ ous examinations. Graft and white matter differentiation is grossly maintained. Orbital structures ar e normal. There paranasal sinuses and mastoid air cells. Small left parietal scalp laceration with sk in shanti. IMPRESSION: No acute intracranial finding. Reviewed by: Smith Mcwilliams MD on 09/13/2022 9:49 AM PDT Approved by: Smith Mcwilliams MD on 09/13/2022 9:49 AM PDT Station ID: [id number]
[2022-09-13 10:26] VITALS: BP 157/88
== END 2022-09-13 10:27 | disposition home or self-care (01) ==
LOC: ED 08:37
DX: S09.90XA Unspecified injury of head, initial encounter (principal); S01.01XA Laceration without foreign body of scalp, initial encounter; R41.0 Disorientation, unspecified; W01.0XXA Fall on same level from slipping, tripping and stumbling without subsequent striking against object, initial encounter; Y92.009 Unspecified place in unspecified non-institutional (private) residence as the place of occurrence of the external cause; G20 Parkinson's disease; Z96.82 Presence of neurostimulator; I10 Essential (primary) hypertension; Z79.899 Other long term (current) drug therapy
CPT/HCPCS: 99282; 99284

== ENCOUNTER 2022-10-05 10:50 | Outpatient (CLI) | payer MEDICARE, OTHER ==
[2022-10-05] MEDS ORDERED: iohexoL-300 100 ML VIAL ONE (11:43)
--- NOTE | 2022-10-05 15:05 | CT Report ---
PROCEDURE: IVP INDICATIONS: GROSS HEMATURIA CONTRAST: 140mL Omnipaque 300 TECHNIQUE: After the administration of oral and intravenous contrast, 5 mm thick sections acquired from the diap hragms to the symphysis. 5 mm thick coronal and sagittal reformats were acquired. For radiation dos e reduction, the following was used: automated exposure control, adjustment of mA and/or kV accordin g to patient size. COMPARISON: None. FINDINGS: Image quality: Excellent. Lung bases: Lung bases are clear. Heart size is normal. Urinary system: Both kidneys are normal in size and enhancement. Contrast-filled renal calyces are normal in morphology. Contrast filled portions of both ureters are normal in caliber. Bladder wall thickness is normal. There are multiple hepatic cysts scattered throughout the patient's liver. Patient is status post cho lecystectomy. Spleen, adrenals, and pancreas are unremarkable. Peritoneum and bowel: Bowel loops demonstrate normal wall thickness and caliber. No free fluid or a ir. Nodes and vessels: No retroperitoneal or mesenteric adenopathy by size criteria. Aorta and inferior vena cava are normal in size. Abdominal wall: No ventral hernias. Pelvis: No pathologic free pelvic fluid. No inguinal hernias or adenopathy. Bones: No suspicious bony lesions. No vertebral body compression fractures. IMPRESSION: 1. No definite to suggest a cause for the patient's hematuria identified. 2. Multiple hepatic cysts present. 3. Status post cholecystectomy. Reviewed by: Demetrius Tate MD on 10/05/2022 3:04 PM PST Approved by: Demetrius Tate MD on 10/05/2022 3:04 PM PST Station ID: [id number]
[2022-10-05] MEDS ORDERED: iohexoL-300 100 ML VIAL IVP ONE (18:17)
== END 2022-10-05 10:51 | disposition home or self-care (01) ==
LOC: LAB 10:50
PROVIDERS: ATTEND Physician Assistant Medical
DX: R31.0 Gross hematuria (principal); K76.89 Other specified diseases of liver; Z90.49 Acquired absence of other specified parts of digestive tract
CPT/HCPCS: 36415; 74178; 82565; 84520; Q9967

== ENCOUNTER 2022-12-01 11:19 | Outpatient (CLI) | payer MEDICARE, OTHER ==
[2022-12-01 18:06] LABS: BASOPHILS # (AUTO) 0.1 10^3/uL (0.0-0.1); BASOPHILS % (AUTO) 0.9 %; EOSINOPHILS # (AUTO) 0.1 10^3/uL (0.0-0.7); EOSINOPHILS % (AUTO) 1.7 %; HCT - HEMATOCRIT 44.5 % (42.0-52.0); HGB - HEMOGLOBIN 14.3 g/dL (14.0-18.0); LYMPHOCYTES # (AUTO) 1.3 10^3/uL (1.5-3.5); LYMPHOCYTES % (AUTO) 20.7 %; MEAN CORPUSCULAR HEMOGLOBIN 28.8 pg (27.0-31.0); MEAN CORPUSCULAR HGB CONC 32.1 g/dL (32.0-36.0); MEAN CORPUSCULAR VOLUME 89.5 fL (80.0-94.0); MEAN PLATELET VOLUME 12.7 fL (7.4-11.4); MONOCYTES # (AUTO) 0.4 10^3/uL (0.0-1.0); MONOCYTES % (AUTO) 6.3 %; NEUTROPHILS # (AUTO) 4.5 10^3/uL (1.5-6.6); NEUTROPHILS % (AUTO) 70.1 %; PLT - PLATELET COUNT 213 10^3/uL (130-450); RED BLOOD COUNT 4.97 10^6/uL (4.70-6.10); RED CELL DISTRIBUTION WIDTH 12.8 % (12.0-15.0); WHITE BLOOD COUNT 6.5 x10^3/uL (4.8-10.8)
[2022-12-01 18:12] LABS: ALBUMIN 4.1 g/dL (3.2-5.5); ALBUMIN/GLOBULIN RATIO 1.2 (1.0-2.2); ALKALINE PHOSPHATASE 77 IU/L (42-121); ALT ALANINE AMINOTRANSFERASE < 10 IU/L (10-60); AST ASPARTATE AMINOTRANSFERASE 25 IU/L (10-42); BILIRUBIN,TOTAL 0.7 mg/dL (0.2-1.0); BUN - BLOOD UREA NITROGEN 19 mg/dL (6-20); CALCIUM 9.5 mg/dL (8.5-10.3); CARBON DIOXIDE - CO2 29 mmol/L (21-32); CHLORIDE 106 mmol/L (101-111); CHOL/HDL RATIO 3.8 (<5.0); CHOLESTEROL 150 mg/dL; GFR - MDRD 73 (>89); GLUCOSE 105 mg/dL (70-100); HDL CHOLESTEROL 39 mg/dL; LDL CHOLESTEROL,CALCULATED 95 mg/dL; LDL/HDL RATIO 2.4 (<3.6); MAGNESIUM 1.8 mg/dL (1.7-2.8); POTASSIUM 4.6 mmol/L (3.5-5.0); SODIUM 142 mmol/L (135-145); TOTAL PROTEIN 7.4 g/dL (6.7-8.2); TRIGLYCERIDES 82 mg/dL; VLDL CHOLESTEROL 16 mg/dL
[2022-12-01 21:44] LABS: ESTIMATED AVERAGE GLUCOSE 157 mg/dL (70-100); HEMOGLOBIN A1c% 7.1 % (4.27-6.07)
== END 2022-12-01 11:20 | disposition home or self-care (01) ==
LOC: LAB.N 11:19
PROVIDERS: ATTEND Internal Medicine
DX: I10 Essential (primary) hypertension (principal); E11.42 Type 2 diabetes mellitus with diabetic polyneuropathy; E83.42 Hypomagnesemia
CPT/HCPCS: 36415; 80053; 80061; 83036; 83721; 83735; 85025

== ENCOUNTER 2023-03-21 07:51 | Outpatient (CLI) | payer MEDICARE, OTHER ==
[2023-03-21 08:04] LABS: BASOPHILS # (AUTO) 0.1 10^3/uL (0.0-0.1); BASOPHILS % (AUTO) 1.1 %; EOSINOPHILS # (AUTO) 0.1 10^3/uL (0.0-0.7); EOSINOPHILS % (AUTO) 2.5 %; HCT - HEMATOCRIT 40.4 % (42.0-52.0); HGB - HEMOGLOBIN 13.2 g/dL (14.0-18.0); LYMPHOCYTES # (AUTO) 1.2 10^3/uL (1.5-3.5); LYMPHOCYTES % (AUTO) 21.9 %; MEAN CORPUSCULAR HEMOGLOBIN 29.6 pg (27.0-31.0); MEAN CORPUSCULAR HGB CONC 32.7 g/dL (32.0-36.0); MEAN CORPUSCULAR VOLUME 90.6 fL (80.0-94.0); MEAN PLATELET VOLUME 11.3 fL (7.4-11.4); MONOCYTES # (AUTO) 0.4 10^3/uL (0.0-1.0); NEUTROPHILS # (AUTO) 3.8 10^3/uL (1.5-6.6); NEUTROPHILS % (AUTO) 67.3 %; PLT - PLATELET COUNT 229 10^3/uL (130-450); RED BLOOD COUNT 4.46 10^6/uL (4.70-6.10); RED CELL DISTRIBUTION WIDTH 12.3 % (12.0-15.0); WHITE BLOOD COUNT 5.6 x10^3/uL (4.8-10.8)
[2023-03-21 08:22] LABS: ALBUMIN/GLOBULIN RATIO 1.3 (1.0-2.2); ALKALINE PHOSPHATASE 60 IU/L (42-121); ALT ALANINE AMINOTRANSFERASE < 10 IU/L (10-60); AST ASPARTATE AMINOTRANSFERASE 14 IU/L (10-42); BILIRUBIN,TOTAL 0.5 mg/dL (0.2-1.0); BUN - BLOOD UREA NITROGEN 19 mg/dL (6-20); CALCIUM 9.3 mg/dL (8.5-10.3); CARBON DIOXIDE - CO2 27 mmol/L (21-32); CHLORIDE 106 mmol/L (101-111); CHOL/HDL RATIO 4.2 (<5.0); CHOLESTEROL 154 mg/dL; CREATININE 0.9 mg/dL (0.6-1.2); GFR - MDRD 83 (>89); GLUCOSE 129 mg/dL (70-100); HDL CHOLESTEROL 37 mg/dL; LDL CHOLESTEROL,CALCULATED 101 mg/dL; LDL/HDL RATIO 2.7 (<3.6); POTASSIUM 4.1 mmol/L (3.5-5.0); SODIUM 143 mmol/L (135-145); TRIGLYCERIDES 80 mg/dL; VLDL CHOLESTEROL 16 mg/dL
[2023-03-21 08:33] LABS: THYROID STIMULATING HORMONE 2.27 uIU/mL (0.34-5.60)
[2023-03-21 11:59] LABS: ESTIMATED AVERAGE GLUCOSE 137 mg/dL (70-100); HEMOGLOBIN A1c% 6.4 % (4.27-6.07)
== END 2023-03-21 07:52 | disposition home or self-care (01) ==
LOC: LAB 07:51
PROVIDERS: ATTEND Internal Medicine
DX: E11.42 Type 2 diabetes mellitus with diabetic polyneuropathy (principal); R63.4 Abnormal weight loss
CPT/HCPCS: 36415; 80053; 80061; 83036; 83721; 84443; 85025

== ENCOUNTER 2023-09-16 09:15 | Outpatient (CLI) | payer MEDICARE, OTHER ==
[2023-09-16 19:41] LABS: CALCIUM 9.9 mg/dL (8.5-10.3); CREATININE 1.1 mg/dL (0.6-1.3); POTASSIUM 4.6 mmol/L (3.5-4.5)
[2023-09-16 20:49] LABS: ESTIMATED AVERAGE GLUCOSE 189 mg/dL (70-100); HEMOGLOBIN A1c% 8.2 % (4.27-6.07)
== END 2023-09-16 09:16 | disposition home or self-care (01) ==
LOC: LAB.N 09:15
PROVIDERS: ATTEND Internal Medicine
DX: E11.42 Type 2 diabetes mellitus with diabetic polyneuropathy (principal)
CPT/HCPCS: 36415; 80048; 83036

== ENCOUNTER 2024-05-16 08:47 | Emergency (ER) | payer MEDICARE, OTHER ==
[2024-05-16 09:06] LABS: BASOPHILS # (AUTO) 0.1 10^3/uL (0.0-0.1); BASOPHILS % (AUTO) 0.7 %; EOSINOPHILS # (AUTO) 0.1 10^3/uL (0.0-0.7); EOSINOPHILS % (AUTO) 1.4 %; HCT - HEMATOCRIT 39.5 % (42.0-52.0); HGB - HEMOGLOBIN 12.5 g/dL (14.0-18.0); LYMPHOCYTES # (AUTO) 0.8 10^3/uL (1.5-3.5); LYMPHOCYTES % (AUTO) 9.6 %; MEAN CORPUSCULAR HEMOGLOBIN 28.2 pg (27.0-31.0); MEAN CORPUSCULAR HGB CONC 31.6 g/dL (32.0-36.0); MEAN PLATELET VOLUME 10.7 fL (7.4-11.4); MONOCYTES # (AUTO) 0.5 10^3/uL (0.0-1.0); MONOCYTES % (AUTO) 6.2 %; NEUTROPHILS # (AUTO) 6.8 10^3/uL (1.5-6.6); NEUTROPHILS % (AUTO) 81.9 %; PLT - PLATELET COUNT 246 10^3/uL (130-450); RED BLOOD COUNT 4.44 10^6/uL (4.70-6.10); RED CELL DISTRIBUTION WIDTH 13.3 % (12.0-15.0); WHITE BLOOD COUNT 8.4 x10^3/uL (4.8-10.8)
[2024-05-16] MEDS: LORazepam 2 MG/ML VIAL IVP STA (09:23)
[2024-05-16 09:25] LABS: ALBUMIN 4.7 g/dL (3.2-5.5); ALBUMIN/GLOBULIN RATIO 1.5 (1.0-2.2); BILIRUBIN,TOTAL 0.5 mg/dL (0.2-1.0); CREATININE 0.9 mg/dL (0.6-1.3); MAGNESIUM 1.7 mg/dL (1.7-2.3); POTASSIUM 3.8 mmol/L (3.5-4.5); TOTAL PROTEIN 7.8 g/dL (6.4-8.9)
[2024-05-16 09:37] LABS: THYROID STIMULATING HORMONE 2.63 uIU/mL (0.34-5.60)
[2024-05-16] MEDS: SODIUM CHLORIDE 0.9% 1,000 ML IV STA (09:45)
[2024-05-16] MEDS ORDERED: LORazepam 2 MG/ML VIAL ONE (09:51)
--- NOTE | 2024-05-16 10:08 | CT Report ---
PROCEDURE: Head WO INDICATIONS: fall, facial injury; less alert TECHNIQUE: Noncontrast 4.5 mm thick angled axial sections acquired from the foramen magnum to the vertex. For r adiation dose reduction, the following was used: automated exposure control, adjustment of mA and/or kV according to patient size. COMPARISON: CT head 09/13/2022. FINDINGS: Image quality: Image quality degraded by beam hardening artifact related to bilateral thalamic neural stimulators. CSF spaces: Basal cisterns are patent. No extra-axial fluid collections. Ventricles are normal in size and shape. Brain: No midline shift. No intracranial masses or hemorrhage. Patel-white matter interface is norm al. Skull and face: Calvarium and visualized facial bones are intact, without suspicious lesions. Sinuses: Visualized sinuses and mastoids are clear. IMPRESSION: No gross acute intracranial pathology within limitations of the study. Reviewed by: Tanisha Salvador MD, PhD on 05/16/2024 10:06 AM PDT Approved by: Tanisha Salvador MD, PhD on 05/16/2024 10:06 AM PDT Station ID: [id number]
--- NOTE | 2024-05-16 10:11 | CT Report ---
PROCEDURE: Maxillofacial WO INDICATIONS: fall, facial/jaw injury TECHNIQUE: Noncontrast 1.5 mm thick axial images acquired from the mandible through the frontal sinuses, with co toño and sagittal reformatting. For radiation dose reduction, the following was used: automated ex posure control, adjustment of mA and/or kV according to patient size. COMPARISON: None. FINDINGS: Image quality: Excellent. Bones and teeth: Orbital jaimes are intact. Sinus jaimes show no fracture or deformity. Nasal bones and septum are intact. Displaced and comminuted fracture involving the right mandibular head and neck . Zygomatic arches are intact. Pterygoid plates are intact. Visualized portions of the skull base a nd auditory canals are intact. Sinuses: Paranasal sinuses are aerated, without fluid levels, mucosal thickening, or mucoceles. Mas toid air cells are aerated. Soft tissues: No edema, masses, or fluid collections. No enlarged lymph nodes. No soft tissue lace rations or debris. Vascular: Visualized vascular structures appear normal in the absence of contrast. Bony vascular fo ramina and canals are intact. IMPRESSION: Displaced, comminuted right mandibular head and neck fracture. Reviewed by: Tanisha Salvador MD, PhD on 05/16/2024 10:09 AM PDT Approved by: Tanisha Salvador MD, PhD on 05/16/2024 10:09 AM PDT Station ID: [id number]
[2024-05-16] MEDS: KETOROLAC 15 MG/ML VIAL IVP STA (10:32)
--- NOTE | 2024-05-16 10:56 | XRAY Report ---
PROCEDURE: Chest 1V INDICATIONS: dyspnea TECHNIQUE: One view of the chest was acquired. COMPARISON: None. FINDINGS: Surgical changes and devices: Right-sided neurostimulator with leads projecting into the bilateral n ratna. Lungs and pleura: No pleural effusions or pneumothorax. Lungs are clear. Mediastinum: Mediastinal contours appear normal. Heart size is normal. Bones and chest wall: No suspicious bony lesions. Overlying soft tissues appear unremarkable. IMPRESSION: No acute cardiopulmonary process. Reviewed by: Tanisha Salvador MD, PhD on 05/16/2024 10:55 AM PDT Approved by: Tanisha Salvador MD, PhD on 05/16/2024 10:55 AM PDT Station ID: [id number]
[2024-05-16 11:16] LABS: BILIRUBIN,URINE NEGATIVE (NEGATIVE); GLUCOSE, URINE (UA) 100 mg/dL (NEGATIVE); KETONES,URINE (UA) NEGATIVE (NEGATIVE); LEUKOCYTE ESTERASE, URINE NEGATIVE (NEGATIVE); NITRITE,URINE NEGATIVE (NEGATIVE); OCCULT BLOOD,URINE NEGATIVE (NEGATIVE); PROTEIN,URINE NEGATIVE (NEGATIVE); UROBILINOGEN,URINE 0.2 (NORMAL) E.U./dL (NORMAL)
[2024-05-16 11:17] LABS: CLARITY,URINE CLEAR (CLEAR)
--- NOTE | 2024-05-16 12:09 | ED Physician Documentation ---
PD HPI Fall - Stated complaint Stated Complaint: FALL, JAW INJURY - Chief complaint Chief Complaint: Trauma Hd/Nk - History obtained from History obtained from: Patient, Family - History of Present Illness Mechanism of injury: Unknown ( found pt face down in living room, appearing to be looking for something under sofa. He was confused seeming but interacting. noted swelling and crackle sound at right jaw with mouth openineg and attempt to eat soon after she found him.) Fall distance: Standing position Where injury occurred: Home Timing - onset: Today Injury(ies) location: Face (right jaw) Associated symptoms: AMS (seemed less verbal and interactive than baseline (poor verbal last few months with his Parkinsons).) Worsens with: Movement, Palpation Similar symptoms before: Has not had sx before Review of Systems Constitutional: denies: Fever, Chills Nose: denies: Rhinorrhea / runny nose, Congestion Throat: denies: Sore throat Respiratory: denies: Cough PD PAST MEDICAL HISTORY - Past Medical History Past Medical History: Yes Cardiovascular: Hypertension, Other Respiratory: Sleep apnea Neuro: Parkinson's Endocrine/Autoimmune: None GI: GERD : Benign prostate hypertrophy HEENT: Other Psych: None Musculoskeletal: None Derm: None - Past Surgical History Past Surgical History: Yes General: Cholecystectomy Derm: Other - Present Medications Home Medications: Ambulatory Orders Medication Instructions Recorded Confirmed Ropinirole HCl [Requip Xl] 2 mg PO BID 09/05/13 04/13/22 Gabapentin 200 mg PO TID 08/17/20 06/19/21 Carbidopa/Levodopa 25/100 [Sinemet 1.5 each PO TID 12/11/20 04/13/22 25 mg/100 mg] metFORMIN [Glucophage] 1,000 mg PO DAILY 12/11/20 06/19/21 Droxidopa 100 mg PO QPM 06/19/21 04/13/22 Droxidopa 200 mg PO 0700,1600 06/19/21 06/19/21 Fludrocortisone [Florinef] 0.1 mg PO TID 06/19/21 04/13/22 Potassium Chloride 20 meq PO BID #14 tab 06/20/21 Levetiracetam [Keppra] 500 mg PO BID #30 tablet 05/16/24 - Allergies Allergies/Adverse Reactions: Allergies Allergy/AdvReac Type Severity Reaction Status Date / Time No Known Drug Allergies Allergy Verified 05/16/24 09:48 - Social History Does the pt smoke?: No Smoking Status: Never smoker Does the pt drink ETOH?: Yes Does the pt have substance abuse?: No - Immunizations Immunizations are current?: Yes - POLST Patient has POLST: No POLST Status: Full Code PD ED PE NORMAL - Vitals Vital signs reviewed: Yes - General General: Alert and oriented X 3, Well developed/nourished - HEENT HEENT: Atraumatic (stimulators noted both parietal areas and the wiring behind ears seems in place. Electrical interference on monitor and ECG show it is working. ), Other (right TMJ/mandible area with swelling and mild crackle feeling with ROM of the jaw. He can open his jaw mildly. ) - Neck Neck: Supple, no meningeal sign, No bony TTP - Cardiac Cardiac: RRR, No murmur - Respiratory Respiratory: Clear bilaterally, Other (no chestwall tenderness. ) - Abdomen Abdomen: Soft, Non tender - Derm Derm: Normal color, Warm and dry - Neuro Neuro: No motor deficit (moves extremities stiffly but no apparent pain. Baseline movement and strength per . ), No sensory deficit Eye Opening: Spontaneous Motor: Obeys Commands Verbal: Oriented GCS Score: 15 Results - Vitals Vitals: Vital Signs - 24 hr 05/16/24 05/16/24 05/16/24 10:03 10:30 10:45 Heart Rate 99 67 69 Respiratory 18 14 20 Rate Blood Pressure 212/120 H 233/217 H 245/110 H O2 Saturation 95 97 100 If not protocol 15 10 10 : Oxygen Flow, liters/minute 05/16/24 05/16/24 05/16/24 11:00 11:15 11:30 Heart Rate 65 60 65 Respiratory 19 19 21 Rate Blood Pressure 216/108 H 217/89 H 197/89 H O2 Saturation 100 100 100 If not protocol 10 : Oxygen Flow, liters/minute 05/16/24 05/16/24 11:45 12:00 Heart Rate 61 63 Respiratory 15 16 Rate Blood Pressure 214/145 H 213/96 H O2 Saturation 100 99 If not protocol : Oxygen Flow, liters/minute Oxygen O2 Source Room air - Labs Labs: Laboratory Tests 05/16/24 05/16/24 05/16/24 08:55 08:55 11:10 WBC 8.4 RBC 4.44 L Hgb 12.5 L Hct 39.5 L MCV 89.0 MCH 28.2 MCHC 31.6 L RDW 13.3 Plt Count 246 MPV 10.7 Neut # (Auto) 6.8 H Lymph # (Auto) 0.8 L [place] # (Auto) 0.5 Eos # (Auto) 0.1 Baso # (Auto) 0.1 Absolute Nucleated RBC 0.00 Nucleated RBC % 0.0 Sodium 142 Potassium 3.8 Chloride 105 Carbon Dioxide 30 Anion Gap 7.0 BUN 22 H Creatinine 0.9 Estimated GFR (MDRD) 82 L Glucose 136 H Calcium 10.0 Magnesium 1.7 Total Bilirubin 0.5 AST 35 ALT 13 Alkaline Phosphatase 85 Total Protein 7.8 Albumin 4.7 Globulin 3.1 Albumin/Globulin Ratio 1.5 Lipase 31 Vitamin B12 544 TSH 2.63 Urine Color LIGHT YELLOW Urine Clarity CLEAR Urine pH 7.0 Ur Specific [place] 1.015 Urine Protein NEGATIVE Urine Glucose (UA) 100 H Urine Ketones NEGATIVE Urine Occult Blood NEGATIVE Urine Nitrite NEGATIVE Urine Bilirubin NEGATIVE Urine Urobilinogen 0.2 (NORMAL) Ur Leukocyte Esterase NEGATIVE Ur Microscopic Review NOT INDICATED Urine Culture Comments NOT INDICATED - Rads (name of study) head CT Relevant Findings:: Prelim report reviewed (interference/artifact, stimulators and wires in place, no ICH. ), See rad report maxilofacial CT Relevant Findings:: Prelim report reviewed, EMP independent interpretation of test (comminuted right mandibular condyle fracture with displacement from joint. ) PD Medical Decision Making - ED course Complexity details: re-evaluated patient (Pt is back to baseline interaction and alertness, conversant mildly as at baseline. comfortable taking pt home with soft/liquid diet. ), d/w talent development consultant (Dr. Manning, his neurologist - in lieu of fall/injury, wanting to hold on AED as might be concussive, and will f/w for EEG/MRI (can be done with his stimulator turned off, so would need to be done at [facility]). Consider AED if repeat seizures.), other (also consulted DELISA Noguera, and he reviewed pictures of the CT scan, and felt likely nonoperative. To follow up in 2 weeks. I conveyed these to pt .) ED course: Nurse noted possible seizure activity when patient was in waiting room just checking in. Lasted few seconds/under a might, and not witnessed until the end of it (commercial front load driver called vahid right away). Patient with generalized self-limited seizure here in the ER, with limited post ictal state, return to normal. He was hypoxic initially after the seizure and with ativan (given even with seizure stopped as was second one this morning). He was good on NC and returned to normoxia once fully awake again. Interacting at baseline per , with eye opening and limited verbal communication but still understandable. Moving extremities. I talked with his Neuro. - Critical Care Time(min): 50 Comments: evaluation of altered mental status, injury/mandibl fracture, new onset seizure. eval of labs and imaging reports, imaging viewed. Consultation with Neurology and maxilofacial surgery. Evaluate need for oxygen and airway. Eval repeated neuro status. Time Includes: Direct patient care, Reassess patient, Document care, Medical consult, Family consult for tx dec Data interpretation: Labs, Pulse ox, CXR Departure - Departure Disposition: 01 Home, Self Care Clinical Impression: Fall, Mandible fracture, Seizure after head injury, Parkinson's disease (tremor, stiffness, slow motion, unstable posture) Condition: Stable Record reviewed to determine appropriate education?: Yes Instructions: ED Fx Mandible, ED Seizure New Onset Unk Cause Follow-Up: RACHAEL MANNING DO [Physician No Access] - Garth Valle DDS [Provider Admit Priv/Credential] - Titi Ocasio MD [Primary Care Provider] - Prescriptions: Levetiracetam [Keppra] 500 mg PO BID #30 tablet Comments: I talked with Dr. Manning your neurologist who at this point did not want to start any antiseizure medicines. Given the injury and apparent fall, the idea may be just a postconcussive seizure and not a epileptic extension of the Parkinson's. If there are recurring seizures then that would alter it in likely want to start some antiseizure medicines. If there are any seizure activity at home, the most important part is to turn the patient to the side so there is no's aspiration or swallowing of saliva or choking. Taking several good breaths and waiting as most seizures will stop in about a minute or less. Certainly call EMS if persisting longer than that or even just any concern. It can be reasonable to recheck if there are recurring seizures. If there is minor seizure activity and you contact Dr. Manning's office and they would like to start antiseizure medicine., Then I did write a prescription for 1 called Keppra twice daily they could fill and get started. Otherwise I could prescribe it from the neurology office. Otherwise Dr. Manning said he does want to see Titi in a soon follow-up for reevaluation and to order some outpatient EEG and MRI studies. These can be done with your neurostimulator but obviously needs to be turned off and be in the appropriate setting to be able to do that. These would then need to get done over at their facility. In addition the broken jaw bone at the condyle of the mandible was reviewed by imaging [place]. He states he thinks it is nonoperative at this point but would want to follow-up with Titi and 1-1/2 to 2 weeks. Call their office for an appointment. Meanwhile liquids only and soft food as chewing will be painful and also move the bone pieces around. Otherwise continue usual medicines. Add Tylenol 500 to 650 mg 4 times daily for the next week or more to help with the pain of this. Basic blood test as well as chest x-ray and urine did not show any obvious infections or abnormalities. Forms: PCP List Discharge Date/Time: 05/16/24 12:10
[2024-05-16 12:19] VITALS: BP 213/96; O2SAT 99
== END 2024-05-16 12:10 | disposition home or self-care (01) ==
LOC: ED 08:47
DX: S02.611A Fracture of condylar process of right mandible, initial encounter for closed fracture (principal); W19.XXXA Unspecified fall, initial encounter; Y92.008 Other place in unspecified non-institutional (private) residence as the place of occurrence of the external cause; R06.00 Dyspnea, unspecified; R56.9 Unspecified convulsions; I10 Essential (primary) hypertension; G20.A1 Parkinson's disease without dyskinesia, without mention of fluctuations; Z96.82 Presence of neurostimulator
CPT/HCPCS: 36415; 70450; 70486; 71045; 80053; 81003; 82607; 83690; 83735; 84443; 85025; 93005; 96361; 96374; 96375; 99291; J2060; P9612; 51701; 81001; 82306; 83540; 84466; 84703; 87086

== ENCOUNTER 2024-07-10 05:25 | Outpatient (CLI) | payer MEDICARE, OTHER | END 2024-07-10 23:59 | disposition E | LOC: EMS 05:25 ==